=== PATIENT | female | born 1990 ===

== ENCOUNTER → 2017-08-26 06:54 | Outpatient (CLI) | payer BC, SELFPAY ==
--- NOTE | 2017-08-26 | DI.US.S_ITS ---
PROCEDURE: US OB <= 14 WEEKS FETUS INDICATIONS: Viability and datings 8 weeks OUTSIDE/PRIOR DATING DATA: Last menstrual period (LMP): 06/21/2017. LMP-based estimated date of delivery (TAVO): 03/28/2017. First dating scan (date and location): 08/26/2017 Estimated date of delivery (TAVO) from first dating scan: 03/27/2018. TECHNIQUE: Real-time scanning was performed of the fetus and maternal pelvic organs, with image documentation. Endovaginal scanning was also performed to better visualize the fetus and maternal ovaries. COMPARISON: None. FINDINGS: Embryo: There is a single viable uterine gestation with a crown-rump length of 2.3 CM (9 weeks and 4 days) and heart rate is 169 bpm. Measurement variability in dating: +/- 4 weeks by LMP, +/- 7 days by mean sac diameter (use before 6 weeks gestation if crown-rump length not able to be measured), +/- 5 days by crown-rump length (up to 8 weeks 6 days gestation), +/- 7 days by crown-rump length (up to 13 weeks 6 days gestation). Maternal organs: The right ovary is not well-seen. There is a left ovarian 1.5 cm corpus luteum cyst.. Limited images through the kidneys demonstrate no hydronephrosis. IMPRESSION: Single intrauterine gestation with estimated gestational age of 9 weeks and 4 days. Dictated by: Eric Booker M.D. on 08/26/2017 at 12:20 Approved by: Eric Booker M.D. on 08/26/2017 at 12:24
[2017-08-26 09:33] LABS: Appearance Urine UA CLEAR; Bilirubin Urine UA NEGATIVE (NEGATIVE); Color Urine UA YELLOW; Glucose Urine UA NEGATIVE (Normal); Ketones Urine UA NEGATIVE (NEGATIVE); Leukocyte Esterase Urine UA NEGATIVE (NEGATIVE); Nitrite Urine UA Negative (Negative); Occult Blood Urine UA NEGATIVE (Negative); Protein Urine UA NEGATIVE (Negative); Urobilinogen Urine UA 0.2 E.U./dL (0.2)
[2017-08-26 09:37] LABS: Add Manual Diff / Slide Review NO; Basophils Percent Auto 0.3 % (0-2); Eosinophils Percent Auto 0.8 % (2-4); Hematocrit 34.5 % (36-46); Hemoglobin 11.5 g/dL (12.0-16.0); Lymphocytes Percent Auto 23.5 % (25-40); Mean Corpuscular HGB Conc 33.2 % (30-36); Mean Corpuscular Hemoglobin 26.3 PG (26-34); Mean Corpuscular Volume 79.3 fL (80-100); Monocytes Percent Auto 8.3 % (3-14); Neutrophils Absolute Auto 5300 /uL (3000-5900); Neutrophils Percent Auto 67.1 % (50-75); Platelet Count 326 X10^3/uL (150-400); Red Blood Cell Count 4.35 X10^6/uL (4.0-5.2); Red Cell Distribution Width 15.7 % (11.6-14.8); White Blood Cell Count 7.9 X10^3/uL (4.5-11.0)
[2017-08-26 10:29] LABS: Hepatitis B Surface Antigen NEGATIVE s/c (NEGATIVE); Rubella Antibody IgG 82.9 IU/mL (>15)
[2017-08-26 10:45] LABS: HIV 1 and 2 Antibody NEGATIVE (NEGATIVE); Hep C Virus Ab w/Reflex Quant NEGATIVE s/c (NEGATIVE)
[2017-08-28 19:46] LABS: HSV 2 IGG AB < 0.90 index (< 0.90); HSV1IGG < 0.90 index (< 0.90)
[2017-09-03 11:51] LABS: Rapid Plasma Reagin NON-REACTIVE
== END ==
PROVIDERS: Visit Provider Family Medicine
DX: Z3A.09 9 weeks gestation of pregnancy (principal); Z34.91 Encounter for supervision of normal pregnancy, unspecified, first trimester
CPT/HCPCS: 36415; 76801; 76817; 80055; 81003; 86695; 86696; 86703; 86787; 86803; 86850; 86900; 86901; 87086

== ENCOUNTER → 2017-10-13 16:42 | Outpatient (CLI) | payer BC, SELFPAY ==
[2017-10-19 10:16] LABS: AFP, Serum 53.7; Calc Gestational Age 16.4
[2017-10-19 10:17] LABS: hCG, Serum 39.5
[2017-10-19 10:19] LABS: Estriol, Free 1.42; Inhibin A, Dimeric 169
[2017-10-19 10:20] LABS: Maternal Weight 141
[2017-10-19 10:21] LABS: Cigarette Smoker NO; Donated Egg NOT GIVEN; Number of Fetuses NOT GIVEN; Previous Pregnancy Down Syndro NOT GIVEN
== END ==
PROVIDERS: Visit Provider Family Medicine
DX: Z3A.16 16 weeks gestation of pregnancy (principal)
CPT/HCPCS: 36415; 82105; 82677; 84702; 86336

== ENCOUNTER → 2017-11-10 09:12 | Outpatient (CLI) | payer BC, SELFPAY ==
--- NOTE | 2017-11-10 09:14 | DI.US.S_ITS ---
PROCEDURE: US OB >= 14 WEEKS FETUS INDICATIONS: ANATOMY OUTSIDE/PRIOR DATING DATA: Last menstrual period (LMP): 06/21/17. LMP-based estimated date of delivery (TAVO): 03/28/79. First dating scan (date and location): 08/26/17. Estimated date of delivery (TAVO) from first dating scan: 03/27/18. TECHNIQUE: Real-time scanning was performed of the fetus, with image documentation and biometric measurements. Endovaginal scanning: Not done COMPARISON: None. FINDINGS: General: A single living intrauterine gestation is present. Presentation: Breech Placenta: Placental position is anterior, without previa. Amniotic fluid index: 13 cm, normal range is 5-24 cm. heart rate: 150 beats per minute. Maternal cervical canal: 3.1 cm long. Normal lower limit is 2.5 cm. biometrics: Biparietal diameter: 4.7 cm, 20 week one day Head circumference: 17.7 cm, 20 week one day Abdominal circumference: 15.1 cm, 20 weeks 2 days Femur length: 3.3 cm, 20 weeks 3 days Estimated gestational age from initial scan: 20 weeks 3 days Composite gestational age from present scan: 20 week 2 days Estimated weight and percentile: 349 g, 41 % Measurement variability for biometric dating: +/- 7 days from 14 weeks to 15 weeks 6 days gestation, +/- 10 days from 16 weeks to 21 weeks 6 days gestation, +/- 2 weeks from 22 weeks to 27 weeks 6 days gestation, +/- 3 weeks for 28 weeks gestation or later. weight reference: 4500 g or EFW >90/95% is considered macrosomia or large for gestational age. EFW <10% is small for gestational age. EFW 5% or less is considered intra-uterine growth restriction. Anatomic survey: Neuro: Ventricles are non-dilated at less than 10 mm. Cisterna magna is normal at 3-11 mm. Cerebellum is normal in size and morphology. Nuchal skin fold: Normal at less than 6 mm between 14-21 weeks gestational age. Face: Nose and lips, facial profile are normal. Spine: No evidence for spina bifida. Heart: 4-chambered heart is present, with normal ventricular outflow tracts. 2 mm echogenic focus is seen with a left ventricle. Diaphragm: Diaphragm is intact. Stomach: Left-sided stomach is present. Kidneys: No hydronephrosis. Normal is less than 5 mm in 2nd trimester, less than 7 mm in 3rd trimester. Cord: 3-vessel cord has orthotopic insertion. Bladder: Normal in size. Extremities: All 4 extremities identified. IMPRESSION: 1. Single live intrauterine with fetus in breech presentation. heart rate is 150 beats per minute. Estimated gestational age based on current study is 20 weeks 2 days. 2. 2 mm echogenic focus is seen in left ventricle and is of indeterminant significance. Rest of survey is unremarkable. Followup study is recommended. 3. Estimated weight is 349 g and is consistent with normal growth. Dictated by: Bal Hood M.D. on 11/10/2017 at 10:08 Approved by: Bal Hood M.D. on 11/10/2017 at 10:18
== END ==
PROVIDERS: Visit Provider Family Medicine
DX: Z34.92 Encounter for supervision of normal pregnancy, unspecified, second trimester (principal); Z3A.20 20 weeks gestation of pregnancy
CPT/HCPCS: 76811

== ENCOUNTER → 2017-12-24 10:30 | Outpatient (CLI) | payer BC, SELFPAY ==
[2017-12-24 12:30] LABS: Hematocrit 31.7 % (36-46); Hemoglobin 10.3 g/dL (12.0-16.0)
[2017-12-24 13:01] LABS: GTT (PREG) 1 Hour PP 50gm Dose 131 mg/dL (76-139)
== END ==
PROVIDERS: PCP Nurse Practitioner; Visit Provider Family Medicine
DX: Z3A.26 26 weeks gestation of pregnancy (principal)
CPT/HCPCS: 36415; 82950; 85014; 85018

== ENCOUNTER → 2018-02-28 10:16 | Outpatient (CLI) | payer BC, SELFPAY ==
[2018-03-01 08:43] LABS: Strep Grp B PCR NEG for Grp B Strep
== END ==
PROVIDERS: PCP Nurse Practitioner; Visit Provider Family Medicine
DX: Z3A.36 36 weeks gestation of pregnancy (principal)
CPT/HCPCS: 87653

== ENCOUNTER 2018-03-26 17:31 | Outpatient (CLI) | payer OTHER, SELFPAY ==
[2018-03-26] MEDS: MORPHINE 10 MG/ML INJ 5 MG IM (18:40)
--- NOTE | 2018-03-26 18:42 | PM.OBTRLD ---
Visit Information Visit Information Date of evaluation: 03/26/18 Primary OB Provider: Jenifer Bravo On-call OB Provider: Olga Robin Reason for Evaluation: Yes rule out labor Comments/Additional reasons for admission: Pt with contractions starting around 3pm. No LOF or vaginal bleeding. 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 Not in active labor. OB Disposition: home
== END 2018-03-26 18:46 | disposition home or self-care (01) ==
LOC: OB 03-28 14:58
PROVIDERS: Family Provider Family Medicine; PCP Nurse Practitioner; Visit Provider Family Medicine
DX: O47.1 False labor at or after 37 completed weeks of gestation (principal); Z3A.39 39 weeks gestation of pregnancy
CPT/HCPCS: 59025; G0378; G0379; J2270

== ENCOUNTER 2018-03-28 07:52 | Inpatient (IN) | payer OTHER, SELFPAY ==
--- NOTE | 2018-03-28 08:34 | PM.OBHP.1 ---
OB HPI Date/Time Date of admission: 03/28/18 Date Patient Seen: 03/28/18 Time Patient Seen: 11:30 History of Present Condition Chief complaint: OBSERVATION/CRAMPING : 1 Para: 0 Estimated Date of Delivery: 03/28/18 Estimated Gestational Age (weeks): 40 Narrative: Fito Torrez is a 27 year old female, at 40 weeks and 0 days. Patient presented with regular painful contractions and leaking of fluid. Amnisure positive on admission. Echogenic intracardiac focus noted on 20 week US however follow up US at [facility] was normal. History of Present care: good care, initiated at week # (11), number of visits (11) and pounds weight gain (32 lbs) Dating criteria: LMP confirmed by 1st trimester US Ultrasounds: normal 1st trimester US and abnormal US findings (EIF, not seen on repeat imaging, otherwise normal anatomy) Obstetrical complications: none Medical complications: none Preadmission Labs Blood type: O (+) positive -: Antibody screen: negative, GBS status: negative, HBsAG: negative, HIV: negative, HSV 1: negative, HSV 2: negative and RPR/VDLR: negative -: Chlamydia screen: not detected and Gonorrhea screen: not detected -: Rubella: immune and Varicella: immune HCT: 34.5 HCAB: negative PAP: Normal Quad screen: Normal 1 hr GTT: 131 Evaluation Evaluation Baseline heart rate: 120 Variability: Moderate (11-25) monitor accelerations: Present monitor decelerations: Absent Contraction Frequency (minutes): 6 Uterine Contraction Intensity: Strong/Firm Category of Tracing: I Cervical dilation (cm): 10 Cervical effacement (%): 100 station: +1 Non-invasive Membranes Rupture Test: positive Comments: AROM with clear fluid PFSH Medical History Anemia (Acute) Nephrolithiasis (Acute) Surgical History [place] teeth removed (Resolved) Family History Other Adopted Social History marital status: 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[employer]) Smoking Status: Never smoker alcohol intake: former (light use before ) substance use type: does not use Meds Home Medications Medication Instructions Recorded Confirmed Type 1 tab PO DAILY 08/26/17 03/28/18 History vitamin,calcium,gbogqwcl-ikwx-kycmk acid tablet Allergies Allergy/AdvReac Type Severity Reaction Status Date / Time No Known Drug Allergies Allergy Unverified 08/26/17 11:44 Review of Systems Review of Systems All systems reviewed & are unremarkable except as noted in HPI and below Exam Const General: healthy appearing and comfortable Orientation: alert, awake and oriented x3 Resp Effort & Inspection: normal respiratory effort Cardio Rate: regular rate Rhythm: regular rhythm External Female Exam: external appearance normal Manual OB Exam: dilated 10, effaced fully and station '+1 Presentation: vertex Estimated Weight (lbs): 7 Amniotic Fluid: clear Extrem General: no pedal edema Objective Labs Result Diagrams: 03/28/18 09:40 Assessment and Plan (1) 40 weeks gestation of : Current visit: Yes Status: Acute 27 year old at 40 weeks gestation, GBS negative. Comfortable with epidural. Labor down one hour then begin pushing. Anticipate .
[2018-03-28] MEDS: LACTATED RINGERS 1,000 ML 100 ML IV ×2 (09:45→11:02)
[2018-03-28 10:08] LABS: Add Manual Diff / Slide Review NO; Basophils Absolute Auto 0 /uL (0-100); Basophils Percent Auto 0.3 % (0-2); Eosinophils Absolute Auto 0 /uL (0-450); Eosinophils Percent Auto 0.1 % (2-4); Hematocrit 36.3 % (36-46); Hemoglobin 11.9 g/dL (12.0-16.0); Lymphocytes Absolute Auto 1300 /uL (1100-4500); Lymphocytes Percent Auto 9.3 % (25-40); Mean Corpuscular HGB Conc 32.8 % (30-36); Mean Corpuscular Hemoglobin 27.1 PG (26-34); Mean Corpuscular Volume 82.9 fL (80-100); Monocytes Absolute Auto 500 /uL (0-900); Monocytes Percent Auto 3.7 % (3-14); Neutrophils Absolute Auto 12000 /uL (1500-7000); Neutrophils Percent Auto 86.6 % (50-75); Platelet Count 243 X10^3/uL (150-400); Red Blood Cell Count 4.38 X10^6/uL (4.0-5.2); Red Cell Distribution Width 15.6 % (11.6-14.8); White Blood Cell Count 13.9 X10^3/uL (4.5-11.0)
[2018-03-28 10:12] VITALS: BP 132/75
[2018-03-28] MEDS: OXYTOCIN PREMIX 30 UNIT/500 ML PLAST..BAG IV (13:17)
--- NOTE | 2018-03-28 16:42 | PM.OBPNLAB ---
Date/Time Date Patient Seen: 03/28/18 Time Patient Seen: 16:42 Pain Control Pain control: tolerating well and epidural Pelvic Exam Dilation (cm): 10 Effacement (%): 100 station: +1 Contractions Monitor mode: External Pitocin rate (mU/min): 3 Contraction frequency (min): 2 Contraction pattern: Regular Contraction intensity: Strong/Firm Status status: Category l Heart Rate Baseline: 120 Monitor Accelerations: Present Monitor Decelerations: Absent Monitor Variability: Moderate Assessment and Plan Assessment: active labor Comments: 27 year old at 40 weeks. Pt has been pushing for over three hours with minimal descent. Now resting. FHT reassuring. Will discuss options with Dr. Lopez for possible forceps, vacuum or .
--- NOTE | 2018-03-28 18:59 | PM.OBPRVD ---
Delivery date: 03/28/18 Intrapartal events: Ineffective Pushing Delivery augmentation: rupture of membranes and pitocin Delivery monitor: external FHT Route of delivery: forceps (Dr. Lopez) L&D Laceration Description: Perineal - 3rd Degree and Vaginal - 3rd Degree (Bilateral sulcus ) Anesthesia type: Epidural Narrative: VAGINAL DELIVERY NOTE BRIEF HISTORY: Patient is a 27-year-old at 40 weeks who gave on 03/28/2018 at 18:14. TAVO: 03/28/2018 Hospital problems: 40 weeks of Epidural analgesia Third degree laceration STAGE I: Labor Patient presented to the center in active labor with leaking of fluid. Amnisure positive. She progressed spontaneously to complete at 11:15 AM but was found to have a bulging bag which was ruptured with clear fluid. Due to a very dense epidural patient was allowed to labor down for an hour prior to pushing. FHT were category 1 throughout stage 1. Stage 1 onset 03/27/18 21:00. Stage 1 duration 12 hours and 15 minutes. STAGE II: Delivery Patient begin pushing at 13:00 however contractions were 6-8 minutes apart so pitocin was started for augmentation. Patient pushed for 3 hours with little progress. Epidural was still quite dense. Patient was allowed to labor down again. FHT were category 1. Patient began pushing again after an hour with minimal progress. Dr. Lopez was consulted for operative delivery. Vacuum did not adequately apply due to caput so forceps were applied and infant successfully delivered. Presentation was [place]. Infant was vigorous at delivery. Cord was clamped and cut after one minute. Apgars were 9 and 9. STAGE III: Placenta/Cord Placenta delivered after active management intact with three vessel cord. The third stage of labor lasted 3 minutes. Patient sustained a third degree perineal laceration and bilateral third degree sulcus lacerations. Dr. Lopez examined the patient and recommended repair in the OR. Risks and benefits of repair reviewed with patient. Consent signed. 2 g Ancef prior to procedure. Needle and sponge counts were correct. The vagina was inspected and no items were left in situ. Patient was doing well with her and at bedside. [place] Baby 1: gender: Female Presentation: vertex Placenta delivery description: Spontaneous cord vessel description: 3 Vessels
--- NOTE | 2018-03-28 19:01 | PM.PREOP ---
Pre-operative Note Interval Note History & Physical reviewed/Exam performed by Physician: Yes Changes to H&P: No
--- NOTE | 2018-03-28 19:06 | SUR.OPER ---
Lithotomy on padded OR bed, head on pillow, arms secured on padded arm boards at <90 degrees abduction. Legs secured in padded yellow fins stirrups.
--- NOTE | 2018-03-28 19:08 | P.PCNOB_ITS ---
Delivery date: 03/28/18 Intrapartal events: Ineffective Pushing Delivery augmentation: rupture of membranes and pitocin Delivery monitor: external FHT Route of delivery: forceps (Dr. Lopez) L&D Laceration Description: Perineal - 3rd Degree and Vaginal - 3rd Degree ( Bilateral sulcus ) Anesthesia type: Epidural Narrative: VAGINAL DELIVERY NOTE BRIEF HISTORY: Patient is a 27-year-old at 40 weeks who gave on 03/28/2018 at 18:14. TAVO: 03/28/2018 Hospital problems: 40 weeks of Epidural analgesia Third degree laceration STAGE I: Labor Patient presented to the center in active labor with leaking of fluid. Amnisure positive. She progressed spontaneously to complete at 11:15 AM but was found to have a bulging bag which was ruptured with clear fluid. Due to a very dense epidural patient was allowed to labor down for an hour prior to pushing. FHT were category 1 throughout stage 1. Stage 1 onset 03/27/18 21:00. Stage 1 duration 12 hours and 15 minutes. STAGE II: Delivery Patient begin pushing at 13:00 however contractions were 6-8 minutes apart so pitocin was started for augmentation. Patient pushed for 3 hours with little progress. Epidural was still quite dense. Patient was allowed to labor down again. FHT were category 1. Patient began pushing again after an hour with minimal progress. Dr. Lopez was consulted for operative delivery. Vacuum did not adequately apply due to caput so forceps were applied and successfully delivered. Presentation was [place]. was vigorous at delivery. Cord was clamped and cut after one minute. Apgars were 9 and 9. STAGE III: Placenta/Cord Placenta delivered after active management intact with three vessel cord. The third stage of labor lasted 3 minutes. Patient sustained a third degree perineal laceration and bilateral third degree sulcus lacerations. Dr. Lopez examined the patient and recommended repair in the OR. Risks and benefits of repair reviewed with patient. Consent signed. 2 g Ancef prior to procedure. Needle and sponge counts were correct. The vagina was inspected and no items were left in situ. Patient was doing well with her and at bedside. [place] Baby 1: Infant gender: Female Presentation: vertex Placenta delivery description: Spontaneous cord vessel description: 3 Vessels
[2018-03-28] MEDS: CEFAZOLIN 2 GM/100 ML FROZ.PIGGY IV (19:35)
[2018-03-28 21:10] VITALS: TEMP 38
[2018-03-28] MEDS: KETOROLAC 30 MG/ML VIAL IV (21:10)
[2018-03-28] MEDS: DERMOPLAST SPRAY 20% 60 ML 1 SPRAY TOP (21:40)
[2018-03-28 22:22] VITALS: TEMP 38.3
[2018-03-28] MEDS: OXYCODONE/ACETAMINOPHEN 5/325 TABLET 2 TAB PO (22:22)
[2018-03-28] MEDS: OXYCODONE IR 5 MG TABLET 10 MG PO (23:38)
[2018-03-29] MEDS: OXYCODONE/ACETAMINOPHEN 5/325 TABLET 2 TAB PO ×4 (02:14→19:00)
[2018-03-29] MEDS: KETOROLAC 30 MG/ML VIAL IV ×2 (03:10→09:10)
[2018-03-29] MEDS: CEFAZOLIN 1 GM/50 ML FROZ.PIGGY IV ×3 (03:10→18:59)
[2018-03-29 06:43] LABS: Add Manual Diff / Slide Review NO; Basophils Absolute Auto 0 /uL (0-100); Basophils Percent Auto 0.1 % (0-2); Eosinophils Absolute Auto 0 /uL (0-450); Eosinophils Percent Auto 0.4 % (2-4); Hematocrit 26.3 % (36-46); Hemoglobin 8.6 g/dL (12.0-16.0); Lymphocytes Absolute Auto 2900 /uL (1100-4500); Lymphocytes Percent Auto 25.7 % (25-40); Mean Corpuscular HGB Conc 32.7 % (30-36); Mean Corpuscular Hemoglobin 27.2 PG (26-34); Mean Corpuscular Volume 83.2 fL (80-100); Monocytes Absolute Auto 1000 /uL (0-900); Monocytes Percent Auto 9.1 % (3-14); Neutrophils Absolute Auto 7300 /uL (1500-7000); Neutrophils Percent Auto 64.7 % (50-75); Platelet Count 172 X10^3/uL (150-400); Red Blood Cell Count 3.16 X10^6/uL (4.0-5.2); Red Cell Distribution Width 15.6 % (11.6-14.8); White Blood Cell Count 11.3 X10^3/uL (4.5-11.0)
[2018-03-29] MEDS: DOCUSATE 250 MG CAPSULE PO (08:39)
[2018-03-29] MEDS: PRENATAL VIT,CALC/IRON/FOLIC 1 TABLET 1 TAB PO (08:39)
[2018-03-29] MEDS: LANOLIN OINT 7 GM 1 APPLIC TOP (08:47)
--- NOTE | 2018-03-29 13:27 | P.PNOB_ITS ---
Subjective - OB Narrative: Pain primarily in bottom, well-controlled with Percocet though she rates it 7/10 (which she says is tolerable). Has not been out of bed. Still has kurtz. Working on breast feeding though infant is inconsistent with latching. Bleeding is light-moderate. She is passing gas. Date Patient Seen: 03/29/18 Time Patient Seen: 12:30 Exam Vital Signs (past 8 hours): Temp 98.1 BP 116/70 Heart rate 88 Respirations 16 Narrative Exam Narrative: General: Awake and alert, no acute distress. HEENT: NCAT, EOMI, moist oral mucosa CV: Regular rate and rhythm, no murmurs, rubs or gallops Lungs: CTAB, no wheezes, rales, or rhonchi Abdomen: Soft, nontender; bowel tones active; uterus firm 1 cm below umbilicus : Kurtz in place. Edema of labia and perineum. Very tender. Extremities: Warm, no edema, 2+ pedal pulses bilaterally Objective Labs Result Diagrams: 03/29/18 06:13 Labs: Laboratory Results - last 24 hr 03/29/18 06:13 WBC 11.3 H RBC 3.16 L Hgb 8.6 L Hct 26.3 L MCV 83.2 MCH 27.2 MCHC 32.7 RDW 15.6 H Plt Count 172 Neut % (Auto) 64.7 D Lymph % (Auto) 25.7 Schleicher % (Auto) 9.1 Eos % (Auto) 0.4 L Baso % (Auto) 0.1 Neut # (Auto) 7300 H Lymph # (Auto) 2900 Schleicher # (Auto) 1000 H Eos # (Auto) 0 Baso # (Auto) 0 Assessment & Plan (1) 40 weeks gestation of : Status: Acute Current Visit: Yes (2) Forceps delivery: Status: Acute Current Visit: Yes (3) Third degree laceration of perineum during delivery, : Status: Acute Current Visit: Yes Plan day: 1 plan OB: routine care Comments: Remove kurtz, encouraged patient to get up out of bed. Continue docusate BID, no straining with bowel movements. Advised against future vaginal deliveries due to extent of tearing and complicated repair. support when available tomorrow. Anticipate discharge home tomorrow. Time Spent With Patient Total time spent is greater than 50% in coordination of care (as documented) at patient's floor/unit and/or counseling patient: less than 15 minutes
[2018-03-29] MEDS: IBUPROFEN 600 MG TABLET PO (18:59)
[2018-03-30] MEDS: OXYCODONE/ACETAMINOPHEN 5/325 TABLET 2 TAB PO ×5 (00:03→20:51)
[2018-03-30] MEDS: IBUPROFEN 600 MG TABLET PO ×4 (00:03→20:51)
[2018-03-30] MEDS: CEFAZOLIN 1 GM/50 ML FROZ.PIGGY IV ×2 (03:35→13:33)
[2018-03-30] MEDS: PRENATAL VIT,CALC/IRON/FOLIC 1 TABLET 1 TAB PO (09:24)
[2018-03-30] MEDS: DOCUSATE 250 MG CAPSULE PO (09:24)
--- NOTE | 2018-03-30 13:10 | PM.OBPN.1 ---
Subjective - OB Narrative: Uneventful night. Feeling a little better today. Pain is slowly improving, still very sore. Has urinated. Passing gas. Getting up with support, concerned about going home because of the amount of help she needs. Working on breast feeding with . Nipples are very sore and have bled with feeds. Using nipple shield and shells. Gave formula overnight. Date Patient Seen: 03/30/18 Time Patient Seen: 12:29 Exam Vital Signs (past 8 hours): Temperature 99.2? Blood pressure 116/63 Heart rate 90 Respirations 16 General: Awake and alert, no acute distress. HEENT: NCAT, EOMI, moist oral mucosa CV: Regular rate and rhythm, no murmurs, rubs or gallops Lungs: CTAB, no wheezes, rales, or rhonchi Abdomen: Soft, nontender; bowel tones active; uterus firm 1 cm below umbilicus Extremities: Warm, no edema, 2+ pedal pulses bilaterally Objective Labs Result Diagrams: 03/29/18 06:13 Assessment & Plan (1) 40 weeks gestation of : Status: Acute Current Visit: Yes (2) Forceps delivery: Status: Acute Current Visit: Yes (3) Third degree laceration of perineum during delivery, : Status: Acute Current Visit: Yes Plan day: 2 plan OB: routine care Comments: Patient continues to require assistance up out of bed due to extensive repair after forceps delivery. Also struggling with breast feeding and significant weight loss in . Will keep her one more night and discharge home tomorrow. Time Spent With Patient Total time spent is greater than 50% in coordination of care (as documented) at patient's floor/unit and/or counseling patient: 15-24 minutes
[2018-03-30] MEDS: MINERAL OIL EMULSIFIED 30 ML PO (14:21)
--- NOTE | 2018-03-30 19:15 | PM.CN ---
History of Present Illness Date Patient Seen: 03/28/18 Time Patient Seen: 17:45 Chief complaint: LABOR AND DELIVERY Reason for consult: Possible operative delivery Requesting provider: Jenifer Bravo Narrative: Patient is a 27-year-old 1 para 0 at 40 weeks gestation who presented in labor this morning. She had spontaneous rupture of membranes at 12:30 p.m.. She received an epidural for pain management at 10:16 a.m.. She progressed to complete dilation 11 15. She had some periods of ineffective pushing and labor down for quite some time. She also had pain management issues and was redosed with the epidural. She had been pushing for approximately 3 and 0.5 hr and a consultation was obtained for possible operative delivery. 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 Large amount of caput. A sin clinic presentation. Objective Labs Result Diagrams: 03/29/18 06:13 Assessment & Plan (1) 40 weeks gestation of : Current visit: Yes Status: Acute (2) Prolonged second stage (of labor): Current visit: Yes Status: Acute Plan: Assessment/Plan Narrative: Assessment: 27-year-old 1 para 0 40 weeks gestation with prolonged 2nd stage of labor +2 station with large amount of caput Plan: Will attempt vacuum assisted delivery If vacuum assisted delivery unsuccessful attempt forceps delivery
--- NOTE | 2018-03-30 19:20 | P.CONS_ITS ---
History of Present Illness Date Patient Seen: 03/28/18 Time Patient Seen: 17:45 Chief complaint: LABOR AND DELIVERY Reason for consult: Possible operative delivery Requesting provider: Jenifer Bravo Narrative: Patient is a 27-year-old 1 para 0 at 40 weeks gestation who presented in labor this morning. She had spontaneous rupture of membranes at 12 :30 p.m.. She received an epidural for pain management at 10:16 a.m.. She progressed to complete dilation 11 15. She had some periods of ineffective pushing and labor down for quite some time. She also had pain management issues and was redosed with the epidural. She had been pushing for approximately 3 and 0.5 hr and a consultation was obtained for possible operative delivery. 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) Smoking Status: Never smoker alcohol intake: former (light use before ) substance use type: does not use Meds Home Medications Medication Instructions Recorded Confirmed Type 1 tab PO DAILY 08/26/17 03/28/18 History vitamin,calcium,vdgzhlys-spya-ywiye acid tablet Allergies Allergy/AdvReac Type Severity Reaction Status Date / Time No Known Drug Allergies Allergy Unverified 08/26/17 11:44 Exam Vital Signs (past 8 hours): Generally: Patient comfortable with epidural Vaginal exam: Complete dilation at +2 station. Large amount of caput. A sin clinic presentation. Objective Labs Result Diagrams: 03/29/18 06:13 Assessment & Plan (1) 40 weeks gestation of : Current visit: Yes Status: Acute (2) Prolonged second stage (of labor): Current visit: Yes Status: Acute Plan: Assessment/Plan Narrative: Assessment: 27-year-old 1 para 0 40 weeks gestation with prolonged 2nd stage of labor +2 station with large amount of caput Plan: Will attempt vacuum assisted delivery If vacuum assisted delivery unsuccessful attempt forceps delivery
--- NOTE | 2018-03-30 19:20 | PM.OBPRVD ---
Delivery date: 03/28/18 Intrapartal events: Ineffective Pushing and Prolonged 2nd Stage > 2.5 hours Cervical ripening method: none Delivery augmentation: rupture of membranes Delivery monitor: external FHT and external uterine Route of delivery: forceps Indication for instrumentation: other (Prolonged 2nd stage) Episiotomy description: None L&D Laceration Description: Perineal - 3rd Degree Delivery repair: vicryl and chromic Estimated blood loss (mL): 400 Anesthesia type: Epidural Complications: Extensive third-degree laceration Narrative: [place] forceps were applied without difficulty with the vertex in the direct occiput anterior presentation. With one contraction, the vertex delivered over an intact perineum. The left forceps were removed at the perineum. The remainder of the body delivered without difficulty and was placed on mom's abdomen per Dr. Bravo. The cord was double clamped and cut. Cord bloods were obtained. The placenta delivered intact with a three-vessel cord. Pitocin was given in the IV fluids. Fundus was firm. There was found to be an extensive third-degree laceration which went up to the capsule and partially into the capsule of the rectum and then around the rectum from the 12 to 6 o'clock position. A repair was attempted in the delivery room but a decision was made quickly to proceed to the operating room for the remainder of the repair. [place] Baby 1: gender: Female Presentation: vertex Placenta delivery description: Spontaneous cord vessel description: 3 Vessels
--- NOTE | 2018-03-30 19:24 | PM.GYNOP.1 ---
Operative Date/Time/Diagnoses Date of procedure: 03/28/18 Time of procedure: 20:30 Pre-op diagnosis: Extensive third-degree laceration following an outlet forceps delivery Post-op diagnosis: same Procedure: Procedures Operation Date: 03/28/18 19:00 Actual Procedures Side Surgeon p Laceration repair in operating room, bilateral sulcus laceration repair, 3rd degree repair Mindi Lopez MD Indications: Extensive third-degree laceration following forceps assisted delivery Surgeon: Mindi Lopez Heavy Equipment Field Mechanic: Jenifer Bravo Anesthesia Type: Epidural Operative Notes Findings: Extensive third-degree laceration with annular tear from the 12 to 6 o'clock position around the rectum. Bilateral sulcus tears. Closure Type: primary Specimen(s): none Applied: catheter (Meneses catheter in place) Estimated blood loss (mL): 100 Blood products transfused: none Procedure in detail: After informed consent was obtained, the patient was taken to the operating room where she was placed in the dorsal supine position. She was then placed into the dorsal lithotomy position, and prepped and draped in the usual sterile fashion. A retractor was placed into the vagina. The sulcus tears were repaired bilaterally with 2 0 Vicryl in the usual running interlocking fashion. The annular tear around the rectum was repaired with deep sutures with 0 Vicryl in simple interrupted fashion. A more superficial repair was performed using 0 Vicryl with simple interrupted sutures. The skin around the rectum was reapproximated using 3 0 chromic with a reverse baseball stitch. The capsule of the rectum was reapproximated using 0 Vicryl with simple interrupted sutures. The perineum was closed with 2 0 Vicryl with deep sutures and with a 2nd layer a superficial sutures. The skin was closed with 2 0 chromic in a subcuticular fashion. Hemostasis was achieved. Sponge, lap, and instrument counts were correct x2. The patient tolerated the procedure well, and was taken to PACU in stable condition. Complications: none Post-operative Condition: stable Disposition: PACU Plan for aftercare: To [facility] after recovery
--- NOTE | 2018-03-30 19:28 | P.OP_ITS ---
Operative Date/Time/Diagnoses Date of procedure: 03/28/18 Time of procedure: 20:30 Pre-op diagnosis: Extensive third-degree laceration following an outlet forceps delivery Post-op diagnosis: same Procedure: Procedures Operation Date: 03/28/18 19:00 Actual Procedures Side Surgeon p Laceration repair in operating room, bilateral sulcus laceration repair, 3rd degree repair Mindi Lopez MD Indications: Extensive third-degree laceration following forceps assisted delivery Surgeon: Mindi Lopez Medical Assistant Supervisor: Jenifer Bravo Anesthesia Type: Epidural Operative Notes Findings: Extensive third-degree laceration with annular tear from the 12 to 6 o 'clock position around the rectum. Bilateral sulcus tears. Closure Type: primary Specimen(s): none Applied: catheter (Meneses catheter in place) Estimated blood loss (mL): 100 Blood products transfused: none Procedure in detail: After informed consent was obtained, the patient was taken to the operating room where she was placed in the dorsal supine position. She was then placed into the dorsal lithotomy position, and prepped and draped in the usual sterile fashion. A retractor was placed into the vagina. The sulcus tears were repaired bilaterally with 2 0 Vicryl in the usual running interlocking fashion. The annular tear around the rectum was repaired with deep sutures with 0 Vicryl in simple interrupted fashion. A more superficial repair was performed using 0 Vicryl with simple interrupted sutures. The skin around the rectum was reapproximated using 3 0 chromic with a reverse baseball stitch. The capsule of the rectum was reapproximated using 0 Vicryl with simple interrupted sutures. The perineum was closed with 2 0 Vicryl with deep sutures and with a 2nd layer a superficial sutures. The skin was closed with 2 0 chromic in a subcuticular fashion. Hemostasis was achieved. Sponge, lap, and instrument counts were correct x2. The patient tolerated the procedure well, and was taken to PACU in stable condition. Complications: none Post-operative Condition: stable Disposition: PACU Plan for aftercare: To [facility] after recovery
--- NOTE | 2018-03-30 19:28 | PM.OBPN.1 ---
Subjective - OB Patient comments: incisional pain baby status: doing well [place] feeding status: exclusively breast feeding Date Patient Seen: 03/30/18 Time Patient Seen: 19:28 Exam Vital Signs (past 8 hours): Generally: Patient is sitting up in bed, no acute distress Fundus: Firm at U -1 Extremities: Negative Homans, no edema Perineum: Intact Objective Labs Result Diagrams: 03/29/18 06:13 Assessment & Plan (1) 40 weeks gestation of : Status: Acute Current Visit: Yes (2) Prolonged second stage (of labor): Status: Acute Current Visit: Yes (3) Laceration, obstetrical, third degree: Status: Acute Current Visit: Yes Plan day: 2 plan OB: routine care Time Spent With Patient Total time spent is greater than 50% in coordination of care (as documented) at patient's floor/unit and/or counseling patient: 15-24 minutes
[2018-03-31] MEDS: IBUPROFEN 600 MG TABLET PO ×2 (02:47→09:01)
[2018-03-31] MEDS: OXYCODONE/ACETAMINOPHEN 5/325 TABLET 2 TAB PO ×2 (02:47→10:51)
[2018-03-31] MEDS: DOCUSATE 250 MG CAPSULE PO (09:01)
[2018-03-31] MEDS: PRENATAL VIT,CALC/IRON/FOLIC 1 TABLET 1 TAB PO (09:01)
[2018-03-31 09:37] VITALS: BP 129/84; PULSE 97; RESP 16; TEMP 37.2
--- NOTE | 2018-03-31 09:51 | PM.OBDS.1 ---
Discharge Providers Date of admission: 03/28/18 07:52 Primary care physician: Steffi Osorio Consults: 03/28/18 Dr. Lopez for operative delivery 03/28/18 21:01 Consult to Mask Design Engineer Routine Comment: Discharge provider: Jenifer Bravo DO Discharge Date: 03/31/18 Summary Date Patient Seen: 03/31/18 Time Patient Seen: 09:54 Hospital Course: Patient is a 27-year-old status post forceps assisted vaginal delivery on 03/28/18. Patient presented in active labor with spontaneous rupture of membranes and quickly progressed to complete however second stage was prolonged. Dr. Lopez was consulted for possible operative delivery. Vacuum was attempted however unsuccessful at which point forceps were applied and infant delivered. did well after delivery. Patient sustained an extensive third-degree laceration which was repaired by Dr. Lopez in the operating room. Patient received Ancef prior to the repair as well as postoperatively. course was complicated by significant perineal pain which was not unexpected though patient required an extra day in the hospital for care. Pain was well controlled with oxycodone and ibuprofen. Patient was ambulating, voiding and passing flatus at the time of discharge. Bleeding was light to moderate. Patient received extensive counseling from Dr. Lopez regarding home care of the repair. Patient was however required assistance from . Infant underwent frenotomy which improved 's latch. Instructed patient to call for fevers, bleeding through more than a pad an hour or severe pain. She will follow up with Dr. Lopez in [address] Bravo in 6 weeks. Exam Temperature 99.2? blood pressure 129/80 for heart rate 97 respirations 16 General: Awake and alert, no acute distress. HEENT: NCAT, EOMI, moist oral mucosa CV: Regular rate and rhythm, no murmurs, rubs or gallops Lungs: CTAB, no wheezes, rales, or rhonchi Abdomen: Soft, nontender; bowel tones active; uterus firm 1 cm below umbilicus Extremities: Warm, trace edema bilaterally, 2+ pedal pulses bilaterally Discharge Diagnosis (1) 40 weeks gestation of : Status: Acute (2) Prolonged second stage (of labor): Status: Acute (3) Laceration, obstetrical, third degree: Status: Acute (4) Forceps delivery: Status: Acute Status at Discharge Functional status at discharge: independent ambulation Overall status at discharge: patient is progressing back to baseline Time Spent with Patient Total time spent providing and/or coordinating discharge services: Less than 30 minutes Objective Labs Result Diagrams: 03/29/18 06:13 Discharge Plan Discharge Plan Patient Disposition: Home Discharge comment: Call with fever, chills, or bleeding vaginally more than a pad in an hour Use soft pillow to sit on Discharge Med Rec/Prescriptions Prescriptions: New oxycodone-acetaminophen [Percocet] 5-325 mg tablet 2 tab PO Q4-6H PRN (Reason: pain) Qty: 30 RF: 0 ibuprofen 600 mg tablet 600 mg PO QID PRN (Reason: pain) Qty: 30 RF: 2 mineral oil-chondrus [Kondremul] 2.5 mL/5 mL emulsion 30 ml PO BID Qty: 480 RF: 2 docusate sodium 250 mg capsule 250 mg PO BID Qty: 30 RF: 2 Continue prenat.vits,ying,ype-capq-qljmb [ Vitamin] tablet 1 tab PO DAILY RF: 0 Follow up/Referrals: Mindi Lopez MD [Physician] - 2 Weeks (Appointment on at 4:30pm. clinic on April 04 at 11:00am.) Jenifer Bravo DO [Physician] - 6 Weeks (Call for appointment) Provider Discharge Instructions Diet: Diet as Tolerated Activity: No intercourse, or lunging or squatting Skin/Wound/Dressing Care Report to your healthcare provider any signs of infection, such as:: chills, fever, increased pain and unusual drainage Visit Report/Discharge Packet Instructions: DI for Labor and Delivery, Vaginal Visit Report Forms: Stroke Signs & Symptoms Discharge Data Primary Care Provider: Steffi Osorio Attending Provider: Jenifer Bravo Admit Date/Time: 03/28/18 07:52
== END 2018-03-31 11:47 | disposition home or self-care (01) | DRG 768 ==
PROVIDERS: Obstetrics & Gynecology; Admitting Provider Family Medicine; PCP Nurse Practitioner; Visit Provider Family Medicine
PROC: 0DQR0ZZ Repair Anal Sphincter, Open Approach (ICD-10-PCS; CPT 59300; principal; 2018-03-28 19:00)
DX: O62.8 Other abnormalities of forces of labor (principal); Z37.0 Single live birth; O70.20 Third degree perineal laceration during delivery, unspecified; O71.89 Other specified obstetric trauma; Z3A.40 40 weeks gestation of pregnancy; O62.1 Secondary uterine inertia
CPT/HCPCS: 01967; 36415; 59050; 59400; 85025; 86850; 86900; 86901; G0379; J0690; J1885; J2590

== ENCOUNTER 2018-08-25 13:00 | Outpatient (RCR) | payer BC, SELFPAY ==
--- NOTE | 2018-08-08 21:10 | PT.OIE ---
Current Diagnoses Third degree perineal laceration during delivery, unspecified (08/04/18) Past Medical History (Last Updated 06/06/18 @ 14:26 by Jenifer Bravo DO) Anemia (Acute) Nephrolithiasis (Acute) Spontaneous vaginal delivery (Resolved) Past Surgical History (Last Reviewed 03/28/18 @ 12:59 by Jenifer Bravo DO) [place] teeth removed (Resolved) Provider Visit Care Team Role Provider Type Jenifer Bravo DO Attending Provider Physician Primary Care Provider Specialty: [facility] Address: [address] [place] [address] Email: [email or web address] Physical Therapy Initial Evaluation PT-OP-A Visit Information Start: 08/04/18 13:00 Freq: Status: Active Protocol: Document 08/04/18 13:00 [facility] (Rec: 08/04/18 13:13 [facility] [id number]) Out-Patient Physical Therapy Visit Information Visit Information Visit Type Initial Evaluation Visit Start Time 13:00 Visit Stop Time 13:45 Total Visit Minutes 45 Visit Number 1 Evaluation Information Evaluation Date 08/04/18 PT-OP-B Current Condition Start: 08/04/18 13:00 Freq: Status: Active Protocol: Document 08/04/18 13:00 [facility] (Rec: 08/04/18 13:13 [facility] [id number]) Current Condition History of Current Condition Onset Date 03/28/18 History of Current Condition The patient is a 27 year old female s/p Forceps delivery with 3rd degree laceration of perineum. Delivery was 03/28/18 . Pt reports her pain has been decreasing since surgery but she still feels pain with certain activities. Overall, pelvic pressure is much better . Once in in a while she symptoms with a bowel movement . She notes she feels sore with a 45 min or longer walk. She can feel pain when picking up her baby Sheba from the floor or with squatting. She is no longer experiencing urinary leakage. She has some urgency now which she never had before . She elvi not yet resumed any sexual intercourse. Treatment Goals Patient/Caregiver Goals To improve pelvic floor support and continue to decrease pain with ADL's, taking care of her baby, and with exercise Prior Functional Status Baseline Function- ADL's Independent Baseline Function- Mobility Independent PT-OP-I Pelvic Floor Start: 08/04/18 13:00 Freq: Status: Active Protocol: Document 08/04/18 13:00 [facility] (Rec: 08/08/18 21:07 [facility] [email or web address]) Pelvic Floor Assessment Urine Pelvic Floor Surgery No Urinary Symptoms Urge Sensation Dribbling After Urination Leakage Size Small Leakage Cause Cough Exercise Pelvic Clock Pelvic Clock 3-6 Guarding Pelvic Clock 6-9 Guarding Pelvic Clock Other Internal pelvic floor evaluation today was limited as Fito had significant discomfort with internal examination. The exam was stopped due to pain and her pelvic floor will be further assessed with treatment Perineal Descent Resting Present Bearing Present SEMG (uV) Baseline 4.8 10 Second Contraction 8.1 Recruitment Pattern Poor/Slow Relaxation Poor/Slow Holding Poor/Slow Stability of Hold Poor/Slow SEMG Stability of Rest Poor/Slow Comments Pelvic Floor Comments EMG biofeedback was performed with a rectal sensor today as the vaginal sensor was too sore to insert. PT-OP-J Posture/Palpation/Skin Start: 08/04/18 13:00 Freq: Status: Active Protocol: Document 08/04/18 13:00 [facility] (Rec: 08/08/18 20:44 [facility] [email or web address]) Palpation Assessment Location One Palpation Location perineum Palpation Findings Tenderness Palpation Details Very hypersensitve to palpation at the perineum with visable healing tissue and scarring from 3rd degree laceration. PT-OP-M Strength Start: 08/08/18 21:07 Freq: Status: Active Protocol: Document 08/04/18 13:00 [facility] (Rec: 08/08/18 21:10 [facility] [email or web address]) Trunk Strength Trunk Manual Muscle Testing Flexion 3 Fair Core Stabilization decreased Transverse abdominal facilitation PT-OP-Q Treatments Start: 08/08/18 21:07 Freq: Status: Active Protocol: Document 08/04/18 13:00 [facility] (Rec: 08/08/18 21:10 [facility] [email or web address]) Therapeutic Exercises Supine Exercises 2 Supine Exercise Name gentle pelvic floor contract/ relax exercise Side bilateral Reps/Minutes x 5 reps 3-4 times per day 1 Supine Exercise Name Happy baby stretch Side bilateral PT-OP-T Assessment and Plan Start: 08/04/18 13:00 Freq: Status: Active Protocol: Document 08/04/18 13:00 [facility] (Rec: 05/27/19 21:07 [facility] [email or web address]) Physical Therapy Assessment Rehab Potential Rehabilitation Potential Good Impairments Impairments Pain Soft Tissue Mobility Strength Tone Goals Three Impairment Elevated resting tone, guarding, pain to palpation of the levator ani Short Term Goal (STG) Fito is able to tolerate a internal assessment of the pelvic floor muscles for improved strengthening and neuromuscular awareness without pain STG Duration 3 weeks Wireless Network Engineer Goal (LTG) Fito is educated on stretches to relax her pelvic floor at rest and decrease guarding so that she can begin her strengthening program, return to intercourse, and reduce pain LTG Duration 8 weeks Two Impairment Pelvic floor weakness and decreased endurance Prison Goal (LTG) Fito has improved support of the pelvic floor muscles and is able to sustain a contraction of her pelvic floor to 10 seconds for improved support of her bladder and improved continence LTG Duration 8 weeks One Impairment Perineum pain with activities that include squatting,lifting ,walking>45m Short Term Goal (STG) With ultrasound and manual therapy techniques, Fito no longer complains of pain to palpation over the perineum STG Duration 4 weeks Wireless Network Engineer Goal (LTG) Fito reports she is able to squat, lift her baby, and walk longer distances without c/o pain LTG Duration 8 weeks Assessment Summary Assessment Fito presents to physical therapy today with pelvic floor weakness and decreased perineum support with a 3rd degree laceration with vaginal delivery 03/28/18. She reports she has gradually been improving but still has pain in the perineum with squatting activities, picking up her baby from the floor, or with walking long distances. She reports that she has been afraid to return to sexual intercourse due to pain levels . She has complaints of urinary leakage with sneezing, coughing and lifting activities. Internal examination was limited today due to high levels of pain. She has pain to palpation at the perineum and there is scaring in a downward direction of the perineum. I wasn't able to get a full assessment of pelvic floor strength other than testing her posterior wall which was 2 /5 MMT. I did start her with EMG biofeedback today using the rectal sensor for a smaller size in the vaginal rea. She tolerated this well. There is guarding of the levator ani present at 4.8 uv. Her average was 8.1 uv with poor hold time and difficulty relaxing. I also gave her some gentle stretching to begin relaxing her pelvic floor and perineum. Treatment next visit will start with ultrasound over the perineum and gentle perineal massage. Exercises for pelvic floor strengthening will slowly be added as her guarding and pain decrease. Treatment will also focus on lower abdominal strengthening and support. Fito is a good candidate for PT for pelvic floor retraining and neuromusculature re-education Physical Therapy Plan Frequency and Duration Frequency of Treatment 1x/Week Duration of Treatment 8 weeks Plan of Care Start Date 08/04/18 Plan of Care End Date 09/29/18 Therapeutic Interventions Therapeutic Interventions Home Exercise Program Manual Therapy Neuromuscular Re-education Patient/Caregiver Education Self-Care/Home Management Soft Tissue Mobilization Therapeutic Exercises Modalities Biofeedback Electric Stimulation Ultrasound Next Visit Focus/Plan Next Note Type Treatment Note Next Visit Plan Begin with ultrasound over the perineum and gentle soft tissue massage, Transverse abdominal and pelvic floor neuromuscular awareness and training
--- NOTE | 2018-08-15 14:27 | PT.OTN ---
Current Diagnoses Third degree perineal laceration during delivery, unspecified (08/11/18) Physical Therapy Treatment Note PT-OP-A Visit Information Start: 08/04/18 13:00 Freq: Status: Active Protocol: Document 08/11/18 14:30 [facility] (Rec: 08/15/18 14:23 [facility] [email or web address]) Out-Patient Physical Therapy Visit Information Visit Information Visit Type Treatment Note Visit Start Time 14:30 Visit Stop Time 15:15 Total Visit Minutes 45 Visit Number 2 Evaluation Information Evaluation Date 08/04/18 PT-OP-B Current Condition Start: 08/04/18 13:00 Freq: Status: Active Protocol: Document 08/04/18 13:00 [facility] (Rec: 08/04/18 13:13 [facility] [id number]) Current Condition History of Current Condition Onset Date 03/28/18 History of Current Condition The patnient is a 27 year old female s/p Forceps delivery with 3rd degree laceration of perineum. Delivery was 03/28/18 . Pt reports her pain has been decreasing since surgery but she still feels pain with certain activities. Overall, pelvic pressure is much better . Once in in a while she symptoms with a bowel movement . She notes she feels sore with a 45 min or longer walk. She can feel pain when picking up her baby Sheba from the floor or with squatting. She is no longer experiencing urinary leakage. She has some urgency now which she never had before . She elvi not yet resumed any sexual intercourse. Treatment Goals Patient/Caregiver Goals To improve pelvic floor support and continue to decrease pain with ADL's, taking care of her baby, and with exercise Prior Functional Status Baseline Function- ADL's Independent Baseline Function- Mobility Independent PT-OP-C Subjective Start: 08/04/18 13:00 Freq: Status: Active Protocol: Document 08/11/18 14:33 [facility] (Rec: 08/11/18 14:35 [facility] [id number]) OP-PT Subjective Patient Comments Patient Comments felt sore following the first visit off and on 3-4 days Patient Reported Progress Same PT-OP-I Pelvic Floor Start: 08/04/18 13:00 Freq: Status: Active Protocol: Document 08/04/18 13:00 [facility] (Rec: 08/08/18 21:07 [facility] [email or web address]) Pelvic Floor Assessment Urine Pelvic Floor Surgery No Urinary Symptoms Urge Sensation Dribbling After Urination Leakage Size Small Leakage Cause Cough Exercise Pelvic Clock Pelvic Clock 3-6 Guarding Pelvic Clock 6-9 Guarding Pelvic Clock Other Internal pelvic floor evaluation today was limited as Fito had significant discomfort with internal examination. The exam was stopped due to pain and her pelvic floor will be further assessed with treatment Perineal Descent Resting Present Bearing Present SEMG (uV) Baseline 4.8 10 Second Contraction 8.1 Recruitment Pattern Poor/Slow Relaxation Poor/Slow Holding Poor/Slow Stability of Hold Poor/Slow SEMG Stability of Rest Poor/Slow Comments Pelvic Floor Comments EMG biofeedback was performed with a rectal sensor today as the vaginal sensor was too sore to insert. PT-OP-J Posture/Palpation/Skin Start: 08/04/18 13:00 Freq: Status: Active Protocol: Document 08/04/18 13:00 [facility] (Rec: 08/08/18 20:44 [facility] [email or web address]) Palpation Assessment Location One Palpation Location perineum Palpation Findings Tenderness Palpation Details Very hypersensitve to palpation at the perineum with visable healing tissue and scarring from 3rd degree laceration. PT-OP-M Strength Start: 08/08/18 21:07 Freq: Status: Active Protocol: Document 08/04/18 13:00 [facility] (Rec: 08/08/18 21:10 [facility] [email or web address]) Trunk Strength Trunk Manual Muscle Testing Flexion 3 Fair Core Stabilization decreased Transverse abdominal faciliation PT-OP-Q Treatments Start: 08/08/18 21:07 Freq: Status: Active Protocol: Document 08/11/18 14:30 [facility] (Rec: 08/15/18 14:23 [facility] [email or web address]) Therapeutic Exercises Supine Exercises 4 Supine Exercise Name nemesio pose 3 Supine Exercise Name figure 4 stretch Reps/Minutes 2 reps hold 1-2 min 2 Supine Exercise Name gentle pelvic floor contract/ relax exercise Side bilateral Reps/Minutes x 5 reps 3-4 times per day 1 Supine Exercise Name Happy baby stretch Side bilateral Self-Care/Home Management Treatment Education Patient Education Home Exercise Program Other Education pt given a size x small dilator for home stretching with instructions to insert for 5-10 min daily PT-OP-R Modalities Start: 08/04/18 13:00 Freq: Status: Active Protocol: Document 08/11/18 14:30 [facility] (Rec: 08/15/18 14:27 [facility] [email or web address]) Ultrasound Therapy Treatment perineum Treatment Duration (minutes) 8 Patient Position Supine Coupling Medium Ultrasound Gel Applicator Size (cm2) 2 Frequency Setting (mHz) 1 Mode Setting Continuous Duty Cycle 100% Intensity Setting (w/cm2) 1.2 PT-OP-T Assessment and Plan Start: 08/04/18 13:00 Freq: Status: Active Protocol: Document 08/11/18 14:30 [facility] (Rec: 08/15/18 14:23 [facility] [email or web address]) Physical Therapy Assessment Assessment Summary Assessment Still using rectal sensor today for EMG biofeedback, I did begin ultrasound over the perineum today and this was helpful to soften the tissue prior to trial of size xsmall dilator. Fito will work this week with the xsmall and progress to small next week if she is able. I was not able to do much soft tissue today as she was very painful still even with ultrasound. She is working on her stretches for home Physical Therapy Plan Frequency and Duration Frequency of Treatment 1x/Week Duration of Treatment 8 weeks Plan of Care Start Date 08/04/18 Plan of Care End Date 09/29/18 Therapeutic Interventions Therapeutic Interventions Home Exercise Program Manual Therapy Neuromuscular Re-education Patient/Caregiver Education Self-Care/Home Management Soft Tissue Mobilization Therapeutic Exercises Modalities Biofeedback Electric Stimulation Ultrasound Next Visit Focus/Plan Next Note Type Treatment Note Next Visit Plan continue working on softening the perineal tissue and progress size of dilators for home use.
--- NOTE | 2018-08-23 17:45 | PT.OTN ---
Current Diagnoses Third degree perineal laceration during delivery, unspecified (08/18/18) Physical Therapy Treatment Note PT-OP-A Visit Information Start: 08/04/18 13:00 Freq: Status: Active Protocol: Document 08/11/18 14:30 [facility] (Rec: 08/15/18 14:23 COUNT INCLUDES THE [facility] [email or web address]) Out-Patient Physical Therapy Visit Information Visit Information Visit Type Treatment Note Visit Start Time 14:30 Visit Stop Time 15:15 Total Visit Minutes 45 Visit Number 2 Evaluation Information Evaluation Date 08/04/18 PT-OP-B Current Condition Start: 08/04/18 13:00 Freq: Status: Active Protocol: Document 08/04/18 13:00 [facility] (Rec: 08/04/18 13:13 [facility] [id number]) Current Condition History of Current Condition Onset Date 03/28/18 History of Current Condition The patnient is a 27 year old female s/p Forceps delivery with 3rd degree laceration of perineum. Delivery was 03/28/18 . Pt reports her pain has been decreasing since surgery but she still feels pain with certain activities. Overall, pelvic pressure is much better . Once in in a while she symptoms with a bowel movement . She notes she feels sore with a 45 min or longer walk. She can feel pain when picking up her baby Sheba from the floor or with squatting. She is no longer experiencing urinary leakage. She has some urgency now which she never had before . She elvi not yet resumed any sexual intercourse. Treatment Goals Patient/Caregiver Goals To improve pelvic floor support and continue to decrease pain with ADL's, taking care of her baby, and with exercise Prior Functional Status Baseline Function- ADL's Independent Baseline Function- Mobility Independent PT-OP-C Subjective Start: 08/04/18 13:00 Freq: Status: Active Protocol: Document 08/18/18 16:00 [facility] (Rec: 08/23/18 17:45 [facility] INCLUDES THE [facility] [id number]) OP-PT Subjective Patient Comments Patient Comments Fito reports she has been able to use the size x small dilator x 10 minutes PT-OP-I Pelvic Floor Start: 08/04/18 13:00 Freq: Status: Active Protocol: Document 08/04/18 13:00 [facility] (Rec: 08/08/18 21:07 COUNT INCLUDES THE [facility] [email or web address]) Pelvic Floor Assessment Urine Pelvic Floor Surgery No Urinary Symptoms Urge Sensation Dribbling After Urination Leakage Size Small Leakage Cause Cough Exercise Pelvic Clock Pelvic Clock 3-6 Guarding Pelvic Clock 6-9 Guarding Pelvic Clock Other Internal pelvic floor evaluation today was limited as Fito had significant discomfort with internal examination. The exam was stopped due to pain and her pelvic floor will be further assessed with treatment Perineal Descent Resting Present Bearing Present SEMG (uV) Baseline 4.8 10 Second Contraction 8.1 Recruitment Pattern Poor/Slow Relaxation Poor/Slow Holding Poor/Slow Stability of Hold Poor/Slow SEMG Stability of Rest Poor/Slow Comments Pelvic Floor Comments EMG biofeedback was performed with a rectal sensor today as the vaginal sensor was too sore to insert. PT-OP-J Posture/Palpation/Skin Start: 08/04/18 13:00 Freq: Status: Active Protocol: Document 08/04/18 13:00 [facility] (Rec: 08/08/18 20:44 [facility] [email or web address]) Palpation Assessment Location One Palpation Location perineum Palpation Findings Tenderness Palpation Details Very hypersensitve to palpation at the perineum with visable healing tissue and scarring from 3rd degree laceration. PT-OP-M Strength Start: 08/08/18 21:07 Freq: Status: Active Protocol: Document 08/04/18 13:00 [facility] (Rec: 08/08/18 21:10 [facility] [email or web address]) Trunk Strength Trunk Manual Muscle Testing Flexion 3 Fair Core Stabilization decreased Transverse abdominal faciliation PT-OP-Q Treatments Start: 08/08/18 21:07 Freq: Status: Active Protocol: Document 08/18/18 16:00 [facility] (Rec: 08/23/18 17:45 [facility] [id number]) Therapeutic Exercises Supine Exercises 5 Supine Exercise Name pt self stretch with size small dilator 4 Supine Exercise Name nemesio pose 3 Supine Exercise Name figure 4 stretch Reps/Minutes 2 reps hold 1-2 min 2 Supine Exercise Name gentle pelvic floor contract/ relax exercise Side bilateral Reps/Minutes x 5 reps 3-4 times per day 1 Supine Exercise Name Happy baby stretch Side bilateral Other Exercises 2 Other Exercise Name quadraped cat cow 1 Other Exercise Name Goddess stretch PT-OP-R Modalities Start: 08/04/18 13:00 Freq: Status: Active Protocol: Document 08/11/18 14:30 [facility] (Rec: 08/15/18 14:27 [facility] [email or web address]) Ultrasound Therapy Treatment perineum Treatment Duration (minutes) 8 Patient Position Supine Coupling Medium Ultrasound Gel Applicator Size (cm2) 2 Frequency Setting (mHz) 1 Mode Setting Continuous Duty Cycle 100% Intensity Setting (w/cm2) 1.2 PT-OP-T Assessment and Plan Start: 08/04/18 13:00 Freq: Status: Active Protocol: Document 08/18/18 16:00 COUNT INCLUDES THE [facility] (Rec: 08/23/18 17:45 COUNT INCLUDES THE [facility] [id number]) Physical Therapy Assessment Assessment Summary Assessment Able to use the size small dilator today so will work with this for mome use this next week. Still very tender to palpation ove the perineum. Physical Therapy Plan Frequency and Duration Frequency of Treatment 1x/Week Duration of Treatment 8 weeks Plan of Care Start Date 08/04/18 Plan of Care End Date 09/29/18 Next Visit Focus/Plan Next Note Type Treatment Note Next Visit Plan continue working on softening the perineal tissue and progress size of dilators for home use.
--- NOTE | 2018-08-28 08:49 | PT.OTN ---
Current Diagnoses Third degree perineal laceration during delivery, unspecified (08/25/18) Physical Therapy Treatment Note PT-OP-A Visit Information Start: 08/04/18 13:00 Freq: Status: Active Protocol: Document 08/25/18 13:00 [facility] (Rec: 08/28/18 08:49 [facility] [email or web address]) Out-Patient Physical Therapy Visit Information Visit Information Visit Type Treatment Note Visit Start Time 13:00 Visit Stop Time 13:45 Total Visit Minutes 45 Visit Number 4 Evaluation Information Evaluation Date 08/04/18 PT-OP-B Current Condition Start: 08/04/18 13:00 Freq: Status: Active Protocol: Document 08/04/18 13:00 [facility] (Rec: 08/04/18 13:13 [facility] [id number]) Current Condition History of Current Condition Onset Date 03/28/18 History of Current Condition The patnient is a 27 year old female s/p Forceps delivery with 3rd degree laceration of perineum. Delivery was 03/28/18 . Pt reports her pain has been decreasing since surgery but she still feels pain with certain activities. Overall, pelvic pressure is much better . Once in in a while she symptoms with a bowel movement . She notes she feels sore with a 45 min or longer walk. She can feel pain when picking up her baby Sheba from the floor or with squatting. She is no longer experiencing urinary leakage. She has some urgency now which she never had before . She elvi not yet resumed any sexual intercourse. Treatment Goals Patient/Caregiver Goals To improve pelvic floor support and continue to decrease pain with ADL's, taking care of her baby, and with exercise Prior Functional Status Baseline Function- ADL's Independent Baseline Function- Mobility Independent PT-OP-C Subjective Start: 08/04/18 13:00 Freq: Status: Active Protocol: Document 08/25/18 13:00 [facility] (Rec: 08/28/18 08:49 [facility] [email or web address]) OP-PT Subjective Patient Comments Patient Comments Able to use the size small dilator a few times this week. Still feeling tightness with squating but overall symptoms are improving PT-OP-I Pelvic Floor Start: 08/04/18 13:00 Freq: Status: Active Protocol: Document 08/04/18 13:00 [facility] (Rec: 08/08/18 21:07 [facility] [email or web address]) Pelvic Floor Assessment Urine Pelvic Floor Surgery No Urinary Symptoms Urge Sensation Dribbling After Urination Leakage Size Small Leakage Cause Cough Exercise Pelvic Clock Pelvic Clock 3-6 Guarding Pelvic Clock 6-9 Guarding Pelvic Clock Other Internal pelvic floor evaluation today was limited as Fito had significant discomfort with internal examination. The exam was stopped due to pain and her pelvic floor will be further assessed with treatment Perineal Descent Resting Present Bearing Present SEMG (uV) Baseline 4.8 10 Second Contraction 8.1 Recruitment Pattern Poor/Slow Relaxation Poor/Slow Holding Poor/Slow Stability of Hold Poor/Slow SEMG Stability of Rest Poor/Slow Comments Pelvic Floor Comments EMG biofeedback was performed with a rectal sensor today as the vaginal sensor was too sore to insert. PT-OP-J Posture/Palpation/Skin Start: 08/04/18 13:00 Freq: Status: Active Protocol: Document 08/04/18 13:00 [facility] (Rec: 08/08/18 20:44 [facility] [email or web address]) Palpation Assessment Location One Palpation Location perineum Palpation Findings Tenderness Palpation Details Very hypersensitve to palpation at the perineum with visable healing tissue and scarring from 3rd degree laceration. PT-OP-M Strength Start: 08/08/18 21:07 Freq: Status: Active Protocol: Document 08/04/18 13:00 [facility] (Rec: 08/08/18 21:10 [facility] [email or web address]) Trunk Strength Trunk Manual Muscle Testing Flexion 3 Fair Core Stabilization decreased Transverse abdominal faciliation PT-OP-Q Treatments Start: 08/08/18 21:07 Freq: Status: Active Protocol: Document 08/25/18 13:00 [facility] (Rec: 08/28/18 08:49 [facility] [email or web address]) Therapeutic Exercises Supine Exercises 7 Supine Exercise Name roll outs with theraband Reps/Minutes 3 x 10 reps 6 Supine Exercise Name isometric ball squeeze for anterior pelvic floor recruitment 5 Supine Exercise Name pt self stretch with size small dilator 3 Supine Exercise Name figure 4 stretch Reps/Minutes 2 reps hold 1-2 min 2 Supine Exercise Name pelvic floor long holds with EMG biofeedback Reps/Minutes x 10 reps x 10 seconds Comments able to use the vaginal sensor today 1 Supine Exercise Name Happy baby stretch Side bilateral Manual Therapy Treatment Soft Tissue Mobilization 2 Body Location perineal body mobilizations 1 Body Location soft tissue of the right posterior pelvic floor externally and lateral wall PT-OP-R Modalities Start: 08/04/18 13:00 Freq: Status: Active Protocol: Document 08/23/18 13:00 [facility] (Rec: 08/28/18 08:49 [facility] [email or web address]) Ultrasound Therapy Treatment perineum Treatment Duration (minutes) 8 Patient Position Supine Coupling Medium Ultrasound Gel Applicator Size (cm2) 2 Frequency Setting (mHz) 1 Mode Setting Continuous Duty Cycle 100% Intensity Setting (w/cm2) 1.2 PT-OP-T Assessment and Plan Start: 08/04/18 13:00 Freq: Status: Active Protocol: Document 08/25/18 13:00 [facility] (Rec: 08/28/18 08:49 [facility] [email or web address]) Physical Therapy Assessment Assessment Summary Assessment Good progress and able to use the vaginal sensor today for the first time. Still very sore with perineal mobility. Decreased tenderness right lateral and posterior wall of the pelvic floor today. Physical Therapy Plan Frequency and Duration Frequency of Treatment 1x/Week Duration of Treatment 8 weeks Plan of Care Start Date 08/04/18 Plan of Care End Date 09/29/18 Therapeutic Interventions Therapeutic Interventions Home Exercise Program Manual Therapy Neuromuscular Re-education Patient/Caregiver Education Self-Care/Home Management Soft Tissue Mobilization Therapeutic Exercises Modalities Biofeedback Electric Stimulation Ultrasound Next Visit Focus/Plan Next Note Type Treatment Note Next Visit Plan continue working on softening the perineal tissue and progress size of dilators for home use.
--- NOTE | 2019-03-16 14:45 | PT.OPDS ---
Current Diagnoses Third degree perineal laceration during delivery, unspecified (08/25/18) Visit Care Team Role Provider Type Jenifer Bravo DO Attending Provider Physician Primary Care Provider Specialty: [facility] Address: [address] [place] [address], [facility], [place], [place], [facility] Email: [email or web address] Visit Number Visit Number 4 Discharge Summary PT-OP-B Current Condition Start: 08/04/18 13:00 Freq: Status: Active Protocol: Document 08/04/18 13:00 [facility] (Rec: 08/04/18 13:13 [facility] [id number]) Current Condition History of Current Condition Onset Date 03/28/18 History of Current Condition The patnient is a 27 year old female s/p Forceps delivery with 3rd degree laceration of perineum. Delivery was 03/28/18 . Pt reports her pain has been decreasing since surgery but she still feels pain with certain activities. Overall, pelvic pressure is much better . Once in in a while she symptoms with a bowel movement . She notes she feels sore with a 45 min or longer walk. She can feel pain when picking up her baby Sheba from the floor or with squatting. She is no longer experiencing urinary leakage. She has some urgency now which she never had before . She elvi not yet resumed any sexual intercourse. Treatment Goals Patient/Caregiver Goals To improve pelvic floor support and continue to decrease pain with ADL's, taking care of her baby, and with exercise Prior Functional Status Baseline Function- ADL's Independent Baseline Function- Mobility Independent PT-OP-C Subjective Start: 08/04/18 13:00 Freq: Status: Active Protocol: Document 08/25/18 13:00 [facility] (Rec: 08/28/18 08:49 [facility] [email or web address]) OP-PT Subjective Patient Comments Patient Comments Able to use the size small dilator a few times this week. Still feeling tightness with squating but overall symptoms are improving PT-OP-I Pelvic Floor Start: 08/04/18 13:00 Freq: Status: Active Protocol: Document 08/04/18 13:00 [facility] (Rec: 08/08/18 21:07 [facility] [email or web address]) Pelvic Floor Assessment Urine Pelvic Floor Surgery No Urinary Symptoms Urge Sensation,Dribbling After Urination Leakage Size Small Leakage Cause Cough,Exercise Pelvic Clock Pelvic Clock 3-6 Guarding Pelvic Clock 6-9 Guarding Pelvic Clock Other Internal pelvic floor evaluation today was limited as Fito had significant discomfort with internal examination. The exam was stopped due to pain and her pelvic floor will be further assessed with treatment Perineal Descent Resting Present Bearing Present SEMG (uV) Baseline 4.8 10 Second Contraction 8.1 Recruitment Pattern Poor/Slow Relaxation Poor/Slow Holding Poor/Slow Stability of Hold Poor/Slow SEMG Stability of Rest Poor/Slow Comments Pelvic Floor Comments EMG biofeedback was performed with a rectal sensor today as the vaginal sensor was too sore to insert. PT-OP-J Posture/Palpation/Skin Start: 08/04/18 13:00 Freq: Status: Active Protocol: Document 08/04/18 13:00 [facility] (Rec: 08/08/18 20:44 [facility] [email or web address]) Palpation Assessment Location One Palpation Location perineum Palpation Findings Tenderness Palpation Details Very hypersensitve to palpation at the perineum with visable healing tissue and scarring from 3rd degree laceration. PT-OP-M Strength Start: 08/08/18 21:07 Freq: Status: Active Protocol: Document 08/04/18 13:00 [facility] (Rec: 08/08/18 21:10 [facility] [email or web address]) Trunk Strength Trunk Manual Muscle Testing Flexion 3 Fair Core Stabilization decreased Transverse abdominal faciliation PT-OP-T Assessment and Plan Start: 08/04/18 13:00 Freq: Status: Active Protocol: Document 03/16/19 14:44 [facility] (Rec: 03/16/19 14:45 [facility] [id number]) Physical Therapy Plan Discharge Physical Therapy Discharge Reasons Patient Request Discharge Comments Pt has not been seen since and requested DC
== END 2018-08-26 12:28 ==
LOC: PHYS 13:00
PROVIDERS: PCP Family Medicine; Visit Provider Family Medicine
DX: O70.20 Third degree perineal laceration during delivery, unspecified (principal)
CPT/HCPCS: 97035; 97110; 97140; 97161; 97535

== ENCOUNTER → 2019-06-02 11:07 | Outpatient (CLI) | payer BC, SELFPAY ==
[2019-06-02 12:20] LABS: Hemoglobin 11.9 g/dL (12.0-16.0); White Blood Cell Count 8.5 X10^3/uL (4.5-11.0)
[2019-06-02 12:21] LABS: BUN Creatinine Ratio 22.5 (6-22); Blood Urea Nitrogen 16 mg/dL (7-17); Calcium 9.8 mg/dL (8.4-10.2); Carbon Dioxide 24 mmol/L (22-32); Chloride 102 mmol/L (98-107); Estimated Glomerular Filt Rate > 60.0 mL/min (>60); Glucose 136 mg/dL (70-100); HEMOLYSIS < 15 (0-50); Potassium 4.5 mmol/L (3.4-5.1); Sodium 135 mmol/L (137-145)
[2019-06-02 12:23] LABS: Add Manual Diff / Slide Review NO; Basophils Absolute Auto 0 /uL (0-100); Basophils Percent Auto 0.3 % (0-2); Eosinophils Absolute Auto 100 /uL (0-450); Eosinophils Percent Auto 1.7 % (2-4); Hematocrit 36.3 % (36-46); Lymphocytes Absolute Auto 1900 /uL (1100-4500); Lymphocytes Percent Auto 22.7 % (25-40); Mean Corpuscular HGB Conc 32.8 % (30-36); Mean Corpuscular Hemoglobin 26.2 PG (26-34); Mean Corpuscular Volume 79.9 fL (80-100); Monocytes Absolute Auto 600 /uL (0-900); Monocytes Percent Auto 6.8 % (3-14); Neutrophils Absolute Auto 5800 /uL (1500-7000); Neutrophils Percent Auto 68.5 % (50-75); Platelet Count 372 X10^3/uL (150-400); Red Blood Cell Count 4.54 X10^6/uL (4.0-5.2); Red Cell Distribution Width 15.2 % (11.6-14.8)
== END ==
PROVIDERS: PCP Nurse Practitioner Gerontology; Referring Provider Orthopaedic Surgery Adult Reconstructive Orthopaedic Surgery; Visit Provider Orthopaedic Surgery Adult Reconstructive Orthopaedic Surgery
DX: Z01.818 Encounter for other preprocedural examination (principal); Z01.812 Encounter for preprocedural laboratory examination
CPT/HCPCS: 36415; 80048; 85025; 93005

== ENCOUNTER → 2020-12-09 09:40 | Outpatient (CLI) | payer BC, SELFPAY | PROVIDERS: PCP Nurse Practitioner Gerontology; Visit Provider Family Medicine | DX: N89.8 Other specified noninflammatory disorders of vagina (principal) | CPT/HCPCS: 87210 ==

== ENCOUNTER → 2021-04-04 09:57 | Outpatient (CLI) | payer BC, SELFPAY ==
--- NOTE | 2021-04-04 09:59 | DI.US.S_ITS ---
PROCEDURE: US OB <= 14 WEEKS FETUS INDICATIONS: DATES OUTSIDE/PRIOR DATING DATA: Last menstrual period (LMP): February 05, 2021. LMP-based estimated date of delivery (TAVO): November 12, 2021. First dating scan (date): April 04, 2021. Estimated date of delivery (TAVO) from first dating scan: November 09, 2021. TECHNIQUE: Real-time scanning was performed of the fetus and maternal pelvic organs, with image documentation. Endovaginal scanning was also performed to better visualize the fetus and maternal ovaries. COMPARISON: [facility], , OB <= 14 WEEKS FETUS, 08/26/2017, 7:37. FINDINGS: Embryo: [place]-rump length measures 2.1 cm, compatible with an 8 week, 5 day gestation. Heart rate: 178 Maternal organs: Ovaries demonstrated a left corpus luteum. IMPRESSION: Single intrauterine gestation as detailed above. We strive to produce accurate, complete, and clear reports of imaging services. To assist us in improving patient care, this report was composed using standard report templates and voice recognition software. Therefore, it may contain abnormal punctuation, insertions and/or omissions. Occasional wrong-word or sound-alike substitutions may occur. Though we review the report and make efforts to correct it, we do recommend that the report be read carefully in proper context to recognize any text inaccuracies. Dictated by: Lalito Dominguez M.D. on 04/04/2021 at 13:23 Approved by: Lalito Dominguez M.D. on 04/04/2021 at 13:25
== END ==
PROVIDERS: PCP Family Medicine; Referring Provider Family Medicine; Visit Provider Family Medicine
DX: Z34.81 Encounter for supervision of other normal pregnancy, first trimester (principal); Z3A.08 8 weeks gestation of pregnancy
CPT/HCPCS: 76801; 76817

== ENCOUNTER → 2021-06-24 11:20 | Outpatient (CLI) | payer BC, SELFPAY ==
[2021-07-01 18:35] LABS: AFP, Serum 72.9 ng/mL (.); Calc Gestational Age Ultrasound (.); Estriol, Free 2.24 ng/mL (.); Inhibin A, Dimeric 248.58 pg/mL (.); Inhibin A, MoM 1.43 (.); Maternal Ethnicity Other (.); Maternal Weight 154 lbs (.); Number of Fetuses No (.); OSBR Risk 1 IN 5411 (.); Results Report (.); Test Results *Screen Negative* (.); hCG, MoM 2.86 (.); hCG, Serum 73302 mIU/mL (.)
== END ==
PROVIDERS: PCP Family Medicine; Referring Provider Family Medicine; Visit Provider Family Medicine
DX: Z34.92 Encounter for supervision of normal pregnancy, unspecified, second trimester (principal); Z3A.19 19 weeks gestation of pregnancy
CPT/HCPCS: 82105; 82677; 84702; 86336

== ENCOUNTER → 2021-06-25 12:07 | Outpatient (CLI) | payer BC, SELFPAY ==
--- NOTE | 2021-06-25 12:08 | DI.US.S_ITS ---
PROCEDURE: US OB >= 14 WEEKS FETUS INDICATIONS: ANATOMY SCREEN OUTSIDE/PRIOR DATING DATA: Last menstrual period (LMP): February 05, 2021 LMP-based estimated date of delivery (TAVO): October 25, 2021 First dating scan (date and location): April 04, 2021 Estimated date of delivery (TAVO) from first dating scan: November 09, 2021 The calculations are made using the ultrasound TAVO of November 09, 2021 TECHNIQUE: Real-time scanning was performed of the fetus, with image documentation and biometric measurements. Endovaginal scanning: Performed COMPARISON: [facility], OB <= 14 WEEKS FETUS, 04/04/2021, 10:06. FINDINGS: General: A single living intrauterine gestation is present. Presentation: Vertex Placenta: Placental position is anterior, without previa. Amniotic fluid index: 17.5 cm, normal range is 5-24 cm. Single deepest vertical pocket is 5.8 cm. heart rate: 147 beats per minute. Maternal cervical canal: Closed and 3.1 cm long. Normal lower limit is 2.5 cm. biometrics: Biparietal diameter: 20 weeks 3 days Head circumference: 20 weeks 2 days Abdominal circumference: 19 weeks 6 days Femur length: 20 weeks 5 days Expected gestational age based on initial ultrasound: 20 weeks 3 days Composite gestational age from present scan: 20 weeks 2 days Estimated weight and percentile: 344 grams; 37th percentile Anatomic survey: Neuro: Ventricles are non-dilated at less than 10 mm. Cisterna magna is normal at 3-11 mm. Cerebellum is normal in size and morphology. Nuchal skin fold: Normal at less than 6 mm between 14-21 weeks gestational age. Face: Face not well visualized due to arms position over the face and time of image acquisition Spine: No evidence for spina bifida. Heart: 4-chambered heart is present, with normal ventricular outflow tracts. Diaphragm: Diaphragm is intact. Stomach: Left-sided stomach is present. Kidneys: No hydronephrosis. Normal is less than 5 mm in 2nd trimester, less than 7 mm in 3rd trimester. Cord: 3-vessel cord has orthotopic insertion. Bladder: Normal in size. Extremities: All 4 extremities identified. IMPRESSION: 1. Single living intrauterine with appropriate interval growth. 2. face suboptimally visualized. anatomic survey otherwise normal. Dictated by: Nicolasa Ibarra MD, PhD on 06/25/2021 at 17:32 Approved by: Nicolasa Ibarra MD, PhD on 06/25/2021 at 17:36
== END ==
PROVIDERS: PCP Family Medicine; Referring Provider Family Medicine; Visit Provider Family Medicine
DX: Z34.92 Encounter for supervision of normal pregnancy, unspecified, second trimester (principal); Z3A.20 20 weeks gestation of pregnancy
CPT/HCPCS: 76811; 76817

== ENCOUNTER → 2021-08-22 08:53 | Outpatient (CLI) | payer BC, SELFPAY ==
[2021-08-22 10:34] LABS: Glucose Fasting Gestational 76 mg/dL (76-95)
[2021-08-22 10:58] LABS: Glucose 1 Hour Gest 125 mg/dL (76-180)
[2021-08-22 12:13] LABS: Glucose Tol Interp,Gestational INTERPRETATION
[2021-08-22 12:28] LABS: Glucose 2 Hour Gest 133 mg/dL (76-155)
[2021-08-22 13:05] LABS: Glucose 3 Hour Gest 134 mg/dL (76-140)
== END ==
PROVIDERS: PCP Family Medicine; Referring Provider Family Medicine; Visit Provider Family Medicine
DX: R73.09 Other abnormal glucose (principal)
CPT/HCPCS: 82951; 82952

== ENCOUNTER → 2021-10-14 12:10 | Outpatient (CLI) | payer BC, SELFPAY ==
[2021-10-15 08:39] LABS: Strep Grp B PCR NEG for Grp B Strep
== END ==
PROVIDERS: PCP Family Medicine; Visit Provider Family Medicine
DX: Z34.93 Encounter for supervision of normal pregnancy, unspecified, third trimester (principal)
CPT/HCPCS: 87653

== ENCOUNTER 2021-11-10 11:21 | Inpatient (IN) | payer BC, SELFPAY ==
--- NOTE | 2021-11-10 | PATH_ITS ---
[facility] Accession Number: [id number] . 01 Material submitted: . fallopian tube - BILATERAL FALLOPIAN TUBES . 01 Clinical history: . PRIMARY W/JO SALPINGECTOMY . 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 MRV 11/12/2021 1107 Local . 01 Electronically signed: . Annabella Parkinson MD, Pathologist NPI- [id number] . 01 Gross description: . Received in formalin labeled with the patient's name and bilateral fallopian tubes consists of two unoriented fimbriated fallopian tubes measuring 7.0 x 0.5 cm and 4.5 x 0.9 cm, respectively. The longer fallopian tube has smooth congested serosa with multiple cystic structures near the fimbriated end measuring up to 0.7 cm in greatest dimension. Sectioning reveals an unremarkable stellate lumen. The shorter fallopian tube has congested smooth serosa with no cystic structures identified, and serial sectioning reveals a congested stellate lumen. Microsystems Engineer sections to include entire bisected fimbriae and sales representative womens health cross-sections are submitted as follows: . A1: Longer fallopian tube. A2: Cory fallopian tube. ([id number]) /MRV 11/11/2021 1541 Local . 01 Pathologist provided ICD-10: Z30.2 . 01 CPT . 712631 Specimen Comment: A courtesy copy of this report has been sent to [phone] Performed at: 01 [facility] [address] [place] [address] [address] [facility], [place], [place] [id number] MD Olegario Downs MD Phone: [phone]
--- NOTE | 2021-11-10 11:31 | PM.OBHP.IH.1 ---
OB HPI Date/Time Date of admission: 11/10/21 Date Patient Seen: 11/10/21 Time Patient Seen: 12:50 History of Present Condition Chief complaint: PRIMARY W/JO SALPINGECTOMY TAVO Calculator Estimated Delivery Date Method Current WG Current Estimate 11/12/21 LMP (Certain) 39w 5d Estimated Gestational Age (weeks): 39w5d : 2 Para: 1 Narrative: 30 year old at 39+5 weeks gestation here for primary due to h/o forceps delivery with extensive tears requiring repair in the OR. has been uncomplicated though she is currently going through a divorce. remains supportive of the . care: good care, initiated at week # (11), number of visits (12) and pounds weight gain (6) Dating criteria OB: LMP confirmed by 1st trimester US Ultrasounds: normal 1st trimester US and normal mid trimester US Obstetrical complications: none Medical complications OB: none Indications Operative indications ( section): other (H/o forceps delivery with extensive tears requiring OR for repair) Preadmission Labs Last OB Lab Results: Blood Type O Positive 03/28/18 09:40 Antibody Screen Negative 03/28/18 09:40 Hematocrit 36.3 % (36-46) 06/02/19 11:14 Hemoglobin 11.9 g/dL (12.0-16.0) L 06/02/19 11:14 Hepatitis B Surface Antigen Negative s/c (NEGATIVE) 08/26/17 09:01 Hepatitis C Antibody Negative s/c (NEGATIVE) 08/26/17 09:01 Rubella Antibody 82.9 IU/mL (>15) 08/26/17 09:01 Varicella-Zoster IgG Antibody 1544.00 Index (< 135.00) H 08/26/17 09:01 Glucose 1 Hour 131 mg/dL (76-139) 12/24/17 11:48 Group B Streptococcus (PCR) Neg for grp b strep 10/14/21 12:10 -: Chlamydia screen: negative, Gonorrhea screen: negative and Urine: negative (Mixed viral) -: PAP smear: Normal Genetic Screens: Quad screen: Normal External Labs -: Urine: negative (Mixed viral) Prior (ies) Past Pregnancies Del. Date GA/Weeks Labor Lgth Wt Sex Route Outcome Anesthesia Place Delv Breastfeed Preg Comp Name 03/28/18 40 10 6 lb 6 oz Female vaginal forceps live - full term epidural IH Difficult - low milk none Sheab Delivery Date: 03/28/18 Last Updated by: Teresa Ortega R.N. Prolonged 2nd stage, forceps, 3rd degree tear w/repair Evaluation Evaluation Baseline heart rate: 130 Variability: Moderate (11-25) monitor accelerations: Present Monitor Decelerations: Absent Category of Tracing: Reactive PFSH Medical History Anemia Ankle fracture (~2019) Ankle pain (~2019) Chicken pox (~1999) Eczema (~2017) Nephrolithiasis (~2014) Spontaneous vaginal delivery (~03/28/18) Surgical History Anesthesia History of ankle surgery (~06/07/19) [place] teeth removed Family History Other Adopted Social History marital status: number of children: 1 household members: spouse and children lives independently: Yes housing: house pets and animals: Yes (dogs, chickens, fish) education level: college occupational status: employed current occupational exposures/hazards: No seatbelt use: always water heater temp set < 120 deg: Yes working smoke detector in home: Yes fire extinguisher in home: Yes carbon monox detector in home: Yes firearms in home: No do you feel safe at home: Yes Smoking Status: Never smoker alcohol intake: former substance use type: does not use during the past year weight has: increased > 10 lbs well-balanced diet: daily or most days daily servings fruits/ve-4 caffeine: Yes Type(s) of exercise: walking Meds Home Medications and Allergies Home Medications Medication Instructions Recorded Confirmed Type prenat.vits,ying,epy-hbvj-ibdgb 1 tab PO DAILY 08/26/17 11/03/21 History ( Vitamin tablet) ascorbic acid (vitamin C) 500 mg 500 mg PO DAILY 08/14/21 11/03/21 History tablet ferrous sulfate 325 mg (65 mg 325 mg PO DAILY 08/14/21 11/03/21 History iron) tablet betamethasone valerate 0.1 % 1 applic topical BEDTIME #15 grams 08/27/21 11/03/21 Rx topical ointment Allergies Allergy/AdvReac Type Severity Reaction Status Date / Time No Known Drug Allergies Allergy Verified 11/03/21 15:24 Review of Systems Review of Systems ROS: Yes All systems reviewed with the patient and are negative except as otherwise documented OB Exam Narrative Exam Narrative: Temperature 36.2? blood pressure 114/68 heart rate 70 HENMT Head: normal to inspection Mouth: oral mucosae normal Eyes General: appearance normal, both eyes and all related structures Resp Effort & Inspection: normal respiratory effort Auscultation: clear to auscultation bilaterally Cardio Rate: regular rate Rhythm: regular rhythm Extremities Lower extremity: Yes normal to inspection; No edema Presentation: full/complete breech Estimated Weight (lbs): 7 Assessment and Plan Assessment and Plan Assessment and Plan narrative: 30 year old at 39+5 weeks gestation here for primary section due to h/o forceps delivery with extensive tears requiring repair in the OR. Patient also desires permanent sterilization and is consented for bilateral salpingectomy in addition to primary section. Reviewed risks again of infection, bleeding or injury or surrounding organs. She is accepting of a blood transfusion if indicated. Consents reviewed and in chart. Will give Ancef 2 g prior to surgery.
[2021-11-10 14:13] LABS: Add Manual Diff / Slide Review NO; Basophils Absolute Auto 100 /uL (0-100); Basophils Percent Auto 0.7 % (0-2); Eosinophils Absolute Auto 100 /uL (0-450); Eosinophils Percent Auto 0.8 % (2-4); Hemoglobin 12.3 g/dL (12.0-16.0); Lymphocytes Absolute Auto 2400 /uL (1100-4500); Lymphocytes Percent Auto 27.2 % (25-40); Mean Corpuscular HGB Conc 33.3 % (30-36); Mean Corpuscular Hemoglobin 27.1 PG (26-34); Mean Corpuscular Volume 81.4 fL (80-100); Monocytes Absolute Auto 600 /uL (0-900); Monocytes Percent Auto 6.9 % (3-14); Neutrophils Absolute Auto 5600 /uL (1500-7000); Neutrophils Percent Auto 64.4 % (50-75); Platelet Count 252 X10^3/uL (150-400); Red Blood Cell Count 4.55 X10^6/uL (4.0-5.2); Red Cell Distribution Width 15.8 % (11.6-14.8); White Blood Cell Count 8.7 X10^3/uL (4.5-11.0)
[2021-11-10 14:48] LABS: COVID19 -Nasal RAPID Negative (Negative)
[2021-11-10] MEDS: CEFAZOLIN 2 GM/100 ML PREMIX 100 ML IV (15:40)
[2021-11-10] MEDS: ACETAMINOPHEN IV 1,000 MG/100 ML VIAL 400 MG IV (15:45)
--- NOTE | 2021-11-10 16:15 | SUR.OPER ---
Supine on padded OR bed, head on pillow, arms secured on padded arm boards at <90 degrees abduction, legs uncrossed, safety belt at thigh, tape over blanket over lower legs.
--- NOTE | 2021-11-10 16:31 | SUR.OPER ---
LIVE BABY GIRL TOB 1608. BABY AND PLACENTA WITH OB RN. UNABLE TO OBTAIN CORD BLOOD.
[2021-11-10 17:12] VITALS: BP 98/62; PULSE 65; RESP 17; TEMP 36.2; O2SAT 98
[2021-11-10 17:16] VITALS: BP 95/52; PULSE 70; RESP 17; O2SAT 94
--- NOTE | 2021-11-10 17:18 | PM.PREOP ---
Pre-operative Note COVID-19 COVID-19 status: Negative Result date/Date tested (Pos, Neg/Pending): 11/10/21 Interval Note History & Physical reviewed/Exam performed by Physician: Yes Changes to H&P: No
--- NOTE | 2021-11-10 17:19 | PM.OBCS.1 ---
Operative Date/Time/Diagnoses Date of procedure: 11/10/21 Time of procedure: 16:00 Pre-op diagnosis: Breech presentation 39 weeks of History of forceps delivery Post-op diagnosis: same Procedure & Clinicians Procedure: Primary low-transverse section Bilateral salpingectomy Same procedure as scheduled: Yes Indications: Breech presentation History of forceps delivery Surgeon: Jenifer Bravo Golf Course Keeper: Olga Robin Reason for Golf Course Keeper: Dr. Robin was essential for retraction, delivery of breech , performing bilateral salpingectomy and suturing Anesthesia Type: Spinal Operative Notes Findings: Vigorous female Normal uterus, tubes and ovaries Closure Type: primary Specimen(s): tubes/segments of tubes (Bilateral fallopian tubes) Intraoperative meds administered: Duramorph, Ketorolac and Pitocin Applied: Catheter Estimated Blood Loss (mL): 400 Procedure in detail: The patient was taken to the operating room where she was placed in the seated position. Spinal anesthesia was administered. She was then placed in the dorsal supine position with a leftward tilt. SCDs applied. She was prepped and draped in the usual sterile fashion. A timeout was performed. After spinal analgesia was found to be adequate, a Pfannenstiel skin incision was made 2 fingerbreadths above the pubic symphysis over the previous scar and carried through to the underlying layer fascia. The fascia was nicked in the midline and the incision extended bilaterally with Watson scissors, Dr. Bravo doing the left side and Dr. Robin doing the right side. The superior aspect of the fascial incision was grasped with a Ramez clamps, elevated, and the underlying rectus muscles dissected off sharply and bluntly. Attention was then turned to the inferior aspect of this incision which in a similar fashion was grasped with a Ramez clamps, elevated, and the underlying rectus muscles dissected off sharply and bluntly. The rectus muscles were in the midline. The peritoneum was entered and dissected bluntly laterally by Dr. Bravo and Dr. Robin. After entering the peritoneum there was good visualization of the bladder. The bladder blade was inserted. The vesicouterine peritoneum was identified, grasped with the pickup, and entered sharply with the Metzenbaum scissors. This incision was extended bilaterally, and the bladder flap was created digitally. The bladder blade was reinserted. The lower uterine segment was incised in a transverse fashion with the scalpel. Upon entering the amniotic sac there was a large amount clear amniotic fluid. Dr. Robin then delivered the hips and body followed then flexed the chin with a finger and delivered the head. The infant was bulb suctioned for clear fluid and cord clamped after one minute delay. was then passed to waiting RN and RT at the warmer. Cord blood was collected. The placenta delivered spontaneously with traction. The uterus was cleaned with clean laps. The uterine incision was repaired with #1 chromic in a running interlocking fashion and a second layer the same suture was used for an imbricating layer. Hemostasis was achieved. The tubes and ovaries were examined and were found to be normal. Dr. Robin then performed the bilateral salpingectomy. The right fallopian tube was grasped with the [place] and Dr. Robin removed the left fallopian tube with the Gyrus and Ayse scissors. Adequate hemostasis noted. The same procedure was performed on the right side. Adequate hemostasis was noted. The bladder peritoneum was repaired with 2-0 Vicryl suture. The peritoneum was closed using 2-0 Vicryl in a running fashion. The fascia was reapproximated using 0 Vicryl in a running fashion. Subcutaneous layer was copiously irrigated with warm normal saline. 3 simple interrupted sutures of 3-0 Vicryl were placed to reapproximate the subcutaneous layer. The skin was closed with 4-0 undyed Vicryl in a subcuticular fashion. Steri-Strips were placed. An Aquacel dressing was placed. The uterus was expressed of a small amount of old blood. Sponge, lap, and instrument counts were correct. The patient tolerated the procedure well, and was taken to PACU in stable condition. [place] Baby 1: Gender: Female Presentation: breech Details: daniel Placental Delivery Description: Spontaneous Cord Vessel Description: 3 Vessels score (1 min): 8 score (5 min): 9 weight: 6 lb 1.921 oz Post-operative Condition: stable Disposition: PACU Aftercare: routine postop
[2021-11-10 17:21] VITALS: BP 107/76; PULSE 84; RESP 16; O2SAT 98
[2021-11-10 17:27] VITALS: BP 97/72; PULSE 67; RESP 16; TEMP 36.1; O2SAT 98
[2021-11-10 18:50] VITALS: BP 120/60
[2021-11-10] MEDS: KETOROLAC 30 MG/ML VIAL IV (23:29)
[2021-11-11] MEDS: KETOROLAC 30 MG/ML VIAL IV ×2 (05:49→12:37)
[2021-11-11 06:11] LABS: Hematocrit 27.4 % (36-46); Hemoglobin 9.2 g/dL (12.0-16.0)
--- NOTE | 2021-11-11 08:08 | P.PNOB_ITS ---
Subjective - OB Subjective Patient comments: no complaints, pain well controlled and tolerating diet baby status: doing well and nursing well feeding status: exclusively breast feeding Narrative: Patient denies complaints. Pain is very well controlled and she is passing flatus. Breast-feeding is off to a good start. Date Patient Seen: 11/11/21 Time Patient Seen: 07:45 Exam Vital Signs (past 8 hours): Oxygen Delivery Method Room Air temperature 97.7? blood pressure 109/72 heart rate 75 respirations 16 Narrative Exam Narrative: General: Awake and alert, no acute distress. HEENT: NCAT, EOMI, moist oral mucosa CV: Regular rate and rhythm, no murmurs, rubs or gallops Lungs: CTAB, no wheezes, rales, or rhonchi Abdomen: Aquacel dressing intact with minimal drainage. Soft, nontender; bowel tones active; uterus firm 1 cm below umbilicus Extremities: Warm, no edema Objective Labs Result Diagrams: 11/11/21 05:42 Labs: Laboratory Results - last 24 hr 11/10/21 11/10/21 11/10/21 06:00 06:00 12:55 WBC 8.7 RBC 4.55 Hgb 12.3 Hct 37.0 MCV 81.4 MCH 27.1 MCHC 33.3 RDW 15.8 H Plt Count 252 Neut % (Auto) 64.4 Lymph % (Auto) 27.2 [place] % (Auto) 6.9 Eos % (Auto) 0.8 L Baso % (Auto) 0.7 Neut # (Auto) 5600 Lymph # (Auto) 2400 [place] # (Auto) 600 Eos # (Auto) 100 Baso # (Auto) 100 SARS-CoV-2 (PCR) Negative Blood Type O Positive Antibody Screen Negative 11/11/21 05:42 WBC RBC Hgb 9.2 L Hct 27.4 L MCV MCH MCHC RDW Plt Count Neut % (Auto) Lymph % (Auto) [place] % (Auto) Eos % (Auto) Baso % (Auto) Neut # (Auto) Lymph # (Auto) [place] # (Auto) Eos # (Auto) Baso # (Auto) SARS-CoV-2 (PCR) Blood Type Antibody Screen Assessment & Plan Assessment and Plan (1) Status post : Status: Acute (2) Breech presentation of fetus: Status: Acute (3) 39 weeks gestation of : Status: Acute (4) Status post bilateral salpingectomy: Status: Acute (5) Acute blood loss anemia: Status: Acute Plan day: 1 plan OB: routine postop care Comments: 30-year-old after primary section with bilateral salpingectomy. She is doing very well postop. Will start iron for anemia s econdary to blood loss from surgery. Anticipate discharge home tomorrow. Time Spent With Patient Time: Total time spent is greater than 50% in coordination of care (as documented) at patient's floor/unit and/or counseling patient: Time with patient: less than 15 minutes
[2021-11-11] MEDS: DOCUSATE 100 MG CAPSULE 200 MG PO (12:38)
[2021-11-11] MEDS: FERROUS SULFATE 325 MG TABLET PO (12:38)
[2021-11-11] MEDS: ACETAMINOPHEN 325 MG TABLET 650 MG PO ×2 (15:52→23:25)
[2021-11-11] MEDS: LANOLIN OINT 7 GM 1 APPLIC TOP (15:53)
[2021-11-11] MEDS: IBUPROFEN 600 MG TABLET PO (19:30)
[2021-11-12] MEDS: IBUPROFEN 600 MG TABLET PO ×2 (01:02→10:56)
[2021-11-12] MEDS: ACETAMINOPHEN 325 MG TABLET 650 MG PO ×2 (04:56→10:55)
--- NOTE | 2021-11-12 08:36 | P.DS_ITS ---
Discharge Providers Provider Date of admission: 11/10/21 11:21 Discharge Date: 11/12/21 Primary care physician: Jenifer Bravo DO Consults: 11/10/21 17:31 Consult to Insurance Account Executive Routine Comment: Discharge provider: Jenifer Bravo DO Summary Hospital Course Date Patient Seen: 11/12/21 Time Patient Seen: 08:30 Diagnoses: 39 weeks of Status post section Status post bilateral salpingectomy Breech presentation History of forceps delivery Acute blood loss anemia Hospital Course: Patient is a 30-year-old G2 now P2 after primary section with bilateral salpingectomy for permanent sterilization. Primary section was performed due to history of forceps delivery with significant tearing as well as breech presentation. Surgery was uncomplicated and she delivered a vigorous female infant weighing 2776 g. course has been uncomplicated. She was started on iron due to acute blood loss secondary to surgery. She is ambulating, voiding and stooling. Pain controlled with ibu profen and Tylenol only. Vaginal bleeding decreasing. There has been some difficulty with breast-feeding however improving. Follow-up in 1 week for Aquacel dressing removal. Patient was advised to call for fevers, severe pain or bleeding through more than a pad an hour. Peripartum Data Infant Delivery Method: Section Discharge Diagnosis (1) Status post : Status: Acute (2) Breech presentation of fetus: Status: Acute (3) 39 weeks gestation of : Status: Acute (4) Status post bilateral salpingectomy: Status: Acute (5) Acute blood loss anemia: Status: Acute Status at Discharge Cognitive/behavioral status at discharge: at baseline, oriented Functional status at discharge: independent ambulation Overall status at discharge: patient is progressing back to baseline Time Spent with Patient Time attestation: Total time spent providing and/or coordinating discharge services: Time spent: Less than 30 minutes Objective Labs Result Diagrams: 11/11/21 05:42 Exam Vital Signs (past 8 hours): Oxygen Delivery Method Room Air Narrative Exam Narrative: Temperature 98.0? blood pressure 112/79 heart rate 92 respirations 17 General: Awake and alert, no acute distress. HEENT: NCAT, EOMI, moist oral mucosa CV: Regular rate and rhythm, no murmurs, rubs or gallops Lungs: CTAB, no wheezes, rales, or rhonchi Abdomen:? Aquacel dressing intact with minimal drainage.? Soft, nontender; bowel tones active; uterus firm 1 cm below umbilicus. Extremities: Warm, no edema Discharge Plan Discharge Plan Patient Disposition: Home Discharge orders & Medications Prescriptions: New docusate sodium 100 mg Capsule 200 mg PO DAILY Qty: 30 0RF ferrous sulfate 325 mg (65 mg iron) Tablet 325 mg PO DAILY Qty: 30 0RF ibuprofen 600 mg Tablet 600 mg PO Q6H PRN (Reason: Fever/Mild Pain (1-3)) Qty: 30 0RF oxycodone 5 mg Tablet 5 mg PO Q4H PRN (Reason: Pain, Moderate (4-6)) Qty: 20 0RF Continued prenat.vits,ying,kbo-wdwu-rwdsg [ Vitamin] tablet 1 tab PO DAILY Follow up/Referrals: Jenifer Bravo DO [Primary Care Provider] - 11/18/21 12:00 pm Diet/Activity/Treatments Diet: Diet as Tolerated Skin/Wound/Dressing Care Report to your healthcare provider any signs of infection, such as:: chills, fever, night sweats, increased pain, unusual drainage and unusual redness Visit Report/Discharge Packet Visit Report Forms: Patient Portal/API, Stroke Signs & Symptoms Discharge Data Primary Care Provider: Jenifer Bravo
[2021-11-12] MEDS: PRENATAL VIT,CALC/IRON/FOLIC 1 TABLET 1 TAB PO (10:57)
[2021-11-12] MEDS: OXYCODONE IR 5 MG TABLET PO (11:02)
== END 2021-11-12 15:30 | disposition home or self-care (01) | DRG 784 ==
PROVIDERS: Admitting Provider Family Medicine; PCP Family Medicine; Referring Provider Family Medicine; Visit Provider Family Medicine
PROC: 10D00Z1 Extraction of Products of Conception, Low, Open Approach (ICD-10-PCS; CPT 59514; principal; 2021-11-10 13:30)
DX: O32.1XX0 Maternal care for breech presentation, not applicable or unspecified (principal); D62 Acute posthemorrhagic anemia; Z3A.39 39 weeks gestation of pregnancy; Z37.0 Single live birth; Z30.2 Encounter for sterilization
CPT/HCPCS: 36415; 59050; 59510; 59514; 85014; 85018; 85025; 86850; 86900; 86901; 87635; C9803; J0131; J0690; J1885; J2274; J2590; J2704